=== PATIENT | male | born 1935 | race Caucasian/White ===

== ENCOUNTER 2017-04-01 11:58 | Inpatient (IN) | payer MEDICARE, BC ==
[2017-04-01 12:17] LABS: #Eosinphils 0.2 thou/uL (0.0-0.7); #Lymphocytes 1.6 thou/uL (1.20-3.40); #Monocytes 0.7 thou/uL (0.11-0.59); #Neutrophils 5.1 thou/uL (1.40-6.50); %Basophils 0.2 % (0.0-1.0); %Eosinophils 2.2 % (0.0-10.0); %Lymphocytes 21.2 % (21.0-51.0); %Monocytes 9.5 % (0.0-10.0); %Neutrophils 66.9 % (42.0-75.0); Hemoglobin 12.8 g/dL (14.0-18.0); Mean Corpuscular HGB CONC 33.2 g/dL (32.0-36.0); Mean Corpuscular Volume 96.2 fl (80.0-94.0); Mean Platelet Volume 7.1 fL (7.4-10.4); Platelet Count 187 thou/uL (130-400); White Blood Cell (WBC) Count 7.7 thou/uL (4.8-10.8)
[2017-04-01 12:34] LABS: PTT 25.2 SEC (22.9-36.1); Prothrombin Time 13.7 SEC (12.0-14.7)
--- NOTE | 2017-04-01 12:34 | RAD ---
CHEST ONE VIEW: History: Emergency exam. Comparison: Chest one view, 07-16-15. FINDINGS: The lungs are clear. No pneumothorax or effusion. Cardiac silhouette and mediastinal contours appear within normal limits. A catheter projects in the left hemithorax. IMPRESSION: No acute intrathoracic abnormality. POS: [facility]
[2017-04-01 12:39] LABS: ALT (SGPT) 16 U/L (8-55); AST (SGOT) 15 U/L (5-34); Albumin 3.3 g/dL (3.4-4.8); Alkaline Phosphatase 94 U/L (40-150); Anion Gap 13 mmol/L (10-20); BUN (Urea Nitrogen) 29 mg/dL (8.4-25.7); Bilirubin, Total 0.4 mg/dL (0.2-1.2); Calc. Creatinine Clearance 0 mL/min (70-130); Calcium 9.5 mg/dL (7.8-10.44); Carbon Dioxide 24 mmol/L (23-31); Chloride 108 mmol/L (98-107); Estimated GFR-MDRD 32; Globulin 2.6 g/dL (2.4-3.5); Glucose 170 mg/dL (83-110); Potassium 3.9 mmol/L (3.5-5.1); Protein, Total 5.9 g/dL (5.8-8.1); Sodium 141 mmol/L (136-145)
[2017-04-01 12:44] LABS: CKMB 3.4 ng/mL (0-6.6); Troponin I 0.043 ng/mL (< 0.028)
--- NOTE | 2017-04-01 15:12 | HP ---
PRIMARY CARE PHYSICIAN: Katie Hewitt M.D. REASON FOR ADMISSION: Symptomatic bradycardia. HISTORY OF PRESENT ILLNESS: An 82-year-old male with history of paroxysmal atrial fibrillation, hype rtension, diabetes type 2, and benign enlargement of prostate, who presented to the emergency room by paramedics for evaluation of syncope. Patient was at home, he had breakfast earlier today. He was seated in chair and whenever he was tryi ng to get out of chair, he was feeling dizzy and about to pass out. His was there and prevented him to fall, but patient was completely groggy and weak. The patient's tried to check vitals, but she was not able to get these blood pressure or pulse rate and that is why she called paramedics. As per paramedics, when they arrived to his home, his pulse was running very low. ER physician told me that his heart rate was in 20-30s and his blood pressure was also very low. Paramedics did cutane ous pacing and subsequently he was brought to our emergency room. When he presented to our emergency room, his blood pressure was normal. His pulse was running in 40s-50s. The patient was still feeli ng weak and lethargic. Paramedics check blood pressure was 74/46 and pulse was 34. As per report, p mateo's lowest blood pressure at home was 64/42. Paramedics gave him 100 microgram of fentanyl and 4 mg of Zofran and 400 mL of NS. As per paramedics, the patient was awake and responding, but he was very lethargic. Paramedics did not give him atropine during transit. As per paramedics, the patien t's heart rate and blood pressure improved after cutaneous pacing. Patient has a history of atrial fibrillation and he had ablation done in the past. The patient was n ot taking any beta sabino therapy, it was stopped about a year ago by Dr. Jarrell when pulse was drop ping. Patient is following Dr. Jarrell and he saw him last in January or February. At that time, ari mayer was given 3 days monitor and that was completely unremarkable. At this point, we are admitting this patient in the hospital for symptomatic bradycardia. 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 PAST SURGICAL HISTORY: Tonsillectomy as a child, prostate biopsy, hemorrhoidectomy, bilateral catara ct surgery, herniorrhaphy, endovascular aortic aneurysm repair, ablation for atrial flutter, lipoma r emoval. PAST PSYCHIATRIC HISTORY: Reviewed and negative. ALLERGIES: The patient is allergic to PENICILLIN. SOCIAL HISTORY: Patient is and lives at home with his . He started smoking by age of 23 and stopped smoking in 1971. He denies any alcohol abuse. He denies any other illicit drug abuse. FAMILY HISTORY: Positive for diabetes mellitus among several family members. REVIEW OF SYSTEMS: The following complete review of systems was negative, unless otherwise mentioned in the HPI or below: Constitutional: Weight loss or gain, ability to conduct usual activities. Skin: Rash, itching. Eyes: Double vision, pain. ENT/Mouth: Nose bleeding, neck stiffness, pain, tenderness. Cardiovascular: Palpitations, dyspnea on exertion, orthopnea. Respiratory: Shortness of breath, wheezing, cough, hemoptysis, fever or night sweats. Gastrointestinal: Poor appetite, abdominal pain, heartburn, nausea, vomiting, constipation, or diarr hea. Genitourinary: Urgency, frequency, dysuria, nocturia. Musculoskeletal: Pain, swelling. Neurologic/Psychiatric: Anxiety, depression. Allergy/Immunologic: Skin rash, bleeding tendency. Please see my HPI for pertinent positive and negative. All other review of systems reviewed and nega tive except that mentioned in the HPI. EMERGENCY ROOM COURSE: Reviewed. Paramedics gave him 500 mcg of fentanyl, 4 mg of Zofran and an 400 mL of NS. CURRENT HOME MEDICATIONS: Levothyroxine 25 mcg p.o. daily, clonidine 0.1 mg p.o. daily, glipizide 5 mg p.o. daily, losartan 50 mg p.o. daily, pravastatin 20 mg p.o. at bedtime, Flomax 0.4 mg p.o. daily , Avodart 0.5 mg p.o. daily, aspirin 81 mg p.o. daily, calcium with vitamin D 1 tablet p.o. daily. PHYSICAL EXAMINATION: VITAL SIGNS: On arrival, blood pressure 121/71, pulse 47, respiratory rate 20, saturation 96% on 3 l iter oxygen, weight 80.3 kilograms, and temperature 98.6. GENERAL: Patient is currently alert, awake, no obvious acute distress. Appears weak. HEAD: Normocephalic, atraumatic. EYES: Pupils round, reactive to light. Extraocular muscle intact. ENT: Oropharynx within normal limits. Moist mucous membranes. No oral lesions. No pharyngeal eryt lance, no exudates. NECK: Supple, no JVD, no thyromegaly, no carotid bruit, no jugular venous distention. LUNGS: Clear to auscultation without any rhonchi or rales. CARDIAC: S1 and S2 regular. No murmur, no gallop, no rub. ABDOMEN: Soft, bowel sounds present, nontender, nondistended. No organomegaly, no mass, no suprapub ic tenderness. BACK: Examination unremarkable, no CVA tenderness. EXTREMITIES: Upper extremity passive movements of all joints are normal. Lower extremities: No iain ma. Good peripheral pulsation. SKIN: No skin rash. HEMATOLOGICAL SYSTEM: No lymphadenopathy. PSYCHIATRIC: Normal affect. NEUROLOGIC: Nonfocal examination. The patient moves all 4 limbs. Plantar bilateral flexor. PSYCHIATRIC: Normal affect. IMAGING DATA AND SIGNIFICANT LABORATORY DATA: 1. EKG showing sinus bradycardia without ischemic changes. 2. CBC: WBC 7.7, hemoglobin 12.8, platelet 187, INR 1.0. 3. BMP: Sodium 141, potassium 3.9, chloride 108, carbon dioxide 24, anion gap 13, BUN 29, creatinin e 2.01, glucose 170, calcium 9.5, magnesium 2.0. 4. LFT: AST 15, ALT 16, alkaline phosphatase 94, albumin 3.3, CK-MB 3.4, troponin I 0.043, BNP 199. 6. ASSESSMENT AND PLAN/IMPRESSION: 1. Syncope, most likely related with acute hypotension and bradycardia. We need to rule out bradyar rhythmia. Another differential diagnosis was vasovagal syncope given hypotension and bradycardia, bu t cannot be entirely excluded cardiac etiology. We will obtain echocardiography. We will monitor on telemetry floor. We will do serial cardiac enzymes. We will consult Cardiology for possible pacema ker evaluation. We will hold try to get strips, which was obtained by paramedics if possible. 2. Bradycardia and hypotension. We will monitor on telemetry floor. As mentioned in problem #1, we are suspecting cardiac etiology for his syncopal episode and we will closely monitor on telemetry fl oor. We will also rule out orthostatic hypotension. 3. Elevated troponin likely due to demand ischemia. We will do serial cardiac enzymes to rule out a cute coronary syndrome. We will continue with aspirin 81 mg p.o. daily. We will check lipid profile for risk stratification and we will also check TSH. 4. Elevated BNP. We will obtain echocardiography to assess ejection fraction and other structural a bnormality. 5. Chronic kidney disease stage 3. We will monitor renal function. We will avoid nephrotoxic agent . 6. Benign enlargement of prostate. After verification of Flomax and Avodart, we will continue while in hospital. 7. Diabetes type 2. After verification of his home dose of medications, we will resume those medica tions and we will continue with insulin as per sliding scale per protocol. Diabetic diet will be giv en. 8. Dyslipidemia. Check lipid profile and continue pravastatin as per home dosage. 9. Hypothyroidism. Check TSH and continue Synthroid 25 mcg p.o. daily. 10. Deep venous thrombosis prophylaxis not needed because we are expecting discharge in 24 hours. 11. Gastrointestinal prophylaxis, Protonix 40 mg p.o. daily. CODE STATUS: The patient is FULL CODE. The patient's is surrogate decision maker. Disposition plan based on clinical course. We are expecting patient's stay in hospital for 24 hours. Plan of care discussed with the patient and at bedside in the emergency room.
[2017-04-01] MEDS ORDERED: hydrALAZINE 20 MG/ML VIAL ONE (16:07)
[2017-04-01] MEDS ORDERED: Chloraseptic Spray 180 ml Bottle PO PRN (16:57)
[2017-04-01] MEDS ORDERED: Eucerin (Mineral Oil/Petrolatum,White) 30 gm Jar TOP PRN (16:57)
[2017-04-01] MEDS ORDERED: Dextrose 50% Abboject 50 ML SYRINGE SLOW IVP PRN (16:57)
[2017-04-01] MEDS ORDERED: HumaLOG 300 UNITS/3 ML VIAL SC PRN ×2 (16:57)
[2017-04-01] MEDS ORDERED: Diabetic Tussin 200 MG/10 ML UDCUP PO PRN (16:57)
[2017-04-01] MEDS ORDERED: Ondansetron ODT 4 MG TAB PO PRN (16:57)
[2017-04-01] MEDS ORDERED: Acetaminophen 325 MG TAB PO PRN (16:57)
[2017-04-01] MEDS ORDERED: Loperamide HCl 2 MG CAP PO PRN (16:57)
[2017-04-01] MEDS ORDERED: Dextrose 5% in Water 1,000 ML IV PRN (16:57)
[2017-04-01] MEDS ORDERED: Senokot 8.6 MG TAB PO PRN (16:57)
[2017-04-01] MEDS ORDERED: Ondansetron HCl/PF 4 MG/2 ML Vial IVP PRN (16:57)
[2017-04-01] MEDS ORDERED: HYDROcodone/Acetaminophen 5/325 mg Tablet PO PRN (16:57)
[2017-04-01] MEDS ORDERED: Milk Of Magnesia 30 ML UDCUP PO PRN (16:57)
[2017-04-01] MEDS ORDERED: Nitroglycerin 0.4 MG TAB (25 Tab Bottle) SL PRN (16:57)
[2017-04-01] MEDS ORDERED: hydrALAZINE 20 MG/ML VIAL SLOW IVP PRN (16:57)
[2017-04-01] MEDS ORDERED: Zolpidem Tartrate 5 MG TAB PO PRN (16:57)
[2017-04-01] MEDS ORDERED: Artificial Tear Sol 15 ML BOT EA EYE PRN (16:57)
[2017-04-01] MEDS ORDERED: Mag-Al 1200 mg/1200 mg/30 ML UDCUP PO PRN (16:57)
[2017-04-01] MEDS ORDERED: Sodium Chloride 0.65% Nasal 44 ML BOT EA NARE PRN (16:57)
[2017-04-01 17:24] VITALS: BMI 25.8
[2017-04-02 06:19] LABS: #Eosinphils 0.1 thou/uL (0.0-0.7); #Lymphocytes 1.1 thou/uL (1.20-3.40); #Monocytes 0.7 thou/uL (0.11-0.59); #Neutrophils 6.5 thou/uL (1.40-6.50); %Basophils 0.5 % (0.0-1.0); %Eosinophils 1.3 % (0.0-10.0); %Lymphocytes 13.1 % (21.0-51.0); %Monocytes 8.6 % (0.0-10.0); %Neutrophils 76.6 % (42.0-75.0); Hemoglobin 13.4 g/dL (14.0-18.0); Mean Corpuscular HGB CONC 32.3 g/dL (32.0-36.0); Mean Corpuscular Hemoglobin 31.3 pg (27.0-31.0); Mean Corpuscular Volume 96.8 fl (80.0-94.0); Mean Platelet Volume 7.1 fL (7.4-10.4); Platelet Count 187 thou/uL (130-400); RBC Distribution Width 13.2 % (11.5-14.5); White Blood Cell (WBC) Count 8.5 thou/uL (4.8-10.8)
[2017-04-02 06:36] LABS: Anion Gap 14 mmol/L (10-20); BUN (Urea Nitrogen) 25 mg/dL (8.4-25.7); Calc. Creatinine Clearance 40 mL/min (70-130); Carbon Dioxide 24 mmol/L (23-31); Cardiac Risk 2.8 (Less than 4.5); Chloride 108 mmol/L (98-107); Cholesterol 136 mg/dl (< 200 Desired); Estimated GFR-MDRD 38; Glucose 118 mg/dL (83-110); HDL Cholesterol 48 mg/dL (>60 Neg Risk); LDL Cholesterol, Calculated 69 mg/dL; Potassium 3.9 mmol/L (3.5-5.1); Sodium 142 mmol/L (136-145); Triglycerides 97 mg/dL (Less than 150)
[2017-04-02] MEDS ORDERED: Levothyroxine Sodium 25 MCG TAB PO SCH (07:00)
[2017-04-02] MEDS: Cyanocobalamin (Vitamin B-12) 1,000 MCG TAB PO SCH ×2 (08:38→08:43)
[2017-04-02] MEDS: Calcitriol 0.25 MCG CAP PO SCH (08:38)
[2017-04-02] MEDS: Famotidine 20 MG TAB PO SCH (08:38)
[2017-04-02] MEDS: Dutasteride 0.5 MG CAP PO SCH (08:38)
[2017-04-02] MEDS: Losartan 25 MG TAB PO SCH (08:39)
[2017-04-02] MEDS: Finasteride 5 MG TAB PO SCH (08:40)
[2017-04-02] MEDS: Tamsulosin HCl 0.4 MG CAP PO SCH ×2 (08:41→22:01)
--- NOTE | 2017-04-02 10:17 | PDOC.PN ---
- Subjective Encounter Start Date: 04/02/17 Encounter Start Time: 07:30 -: old records requested/rev - Objective Resuscitation Status: Resuscitation Status FULL:Full Resuscitation MAR Reviewed: Yes Vital Signs & Weight: Vital Signs (12 hours) Temp Pulse Resp BP BP BP BP 04/02/17 10:05 166/84 H 163/87 H 04/02/17 08:00 98.0 F 66 20 197/96 H 04/02/17 04:07 51 L 18 179/91 H 04/01/17 23:35 97.8 F 52 L 16 167/84 H BP Pulse Ox 04/02/17 10:05 176/82 H 04/02/17 08:00 92 L 04/02/17 04:07 92 L 04/01/17 23:35 93 L Weight Weight 185 lb 1.6 oz Result Diagrams: 04/02/17 05:36 04/02/17 05:36 Additional Labs: Accuchecks 04/01/17 21:01 POC Glucose 227 H Radiology Reviewed by me: Yes EKG Reviewed by me: Yes (bradycardia) Phys Exam - Physical Examination Constitutional: NAD HEENT: PERRLA, moist MMs, sclera anicteric Neck: no JVD, supple Respiratory: no wheezing, no rales, no rhonchi Cardiovascular: RRR, no significant murmur, no rub Gastrointestinal: soft, non-tender, no distention, positive bowel sounds Musculoskeletal: no edema, pulses present Neurological: non-focal, normal sensation, moves all 4 limbs Lymphatic: no nodes Psychiatric: normal affect, A&O x 3 Skin: no rash, normal turgor Dx/Plan (1) Elevated brain natriuretic peptide (BNP) level Code(s): R79.89 - OTHER SPECIFIED ABNORMAL FINDINGS OF BLOOD CHEMISTRY Status : Acute (2) Hypotension Status: Resolved (3) Symptomatic bradycardia Code(s): R00.1 - BRADYCARDIA, UNSPECIFIED Status: Acute (4) Syncope Code(s): R55 - SYNCOPE AND COLLAPSE Status: Acute (5) BPH (benign prostatic hyperplasia) Code(s): N40.0 - BENIGN PROSTATIC HYPERPLASIA WITHOUT LOWER URINRY TRACT SYMP Status: Chronic (6) CKD (chronic kidney disease) stage 3, GFR 30-59 ml/min Code(s): N18.3 - CHRONIC KIDNEY DISEASE, STAGE 3 (MODERATE) Status: Chronic (7) Diabetes type 2, controlled Code(s): E11.9 - TYPE 2 DIABETES MELLITUS WITHOUT COMPLICATIONS Status: Chronic (8) Hyperlipidemia Code(s): E78.5 - HYPERLIPIDEMIA, UNSPECIFIED Status: Chronic (9) Hypertension Code(s): I10 - ESSENTIAL (PRIMARY) HYPERTENSION Status: Chronic - Plan cont current plan of care * as per cardiology, pt will need pacemaker * procedure will be done tomorrow * after procedure will need to observe overnight * will need to change to inpt status * medication reviewed as below * symptomatic treatment Review of Systems - Review of Systems Eyes: negative: Pain, Vision Change, Conjunctivae Inflammation, Eyelid Inflammation, Redness, Other ENT: negative: Ear Pain, Ear Discharge, Nose Pain, Nose Discharge, Nose Congestion, Mouth Pain, Mouth Swelling, Throat Pain, Throat Swelling, Other Respiratory: negative: Cough, Dry, Shortness of Breath, Hemoptysis, SOB with Excertion, Pleuritic Pain, Sputum, Wheezing Cardiovascular: negative: chest pain, palpitations, orthopnea, paroxysmal nocturnal dyspnea, edema, light headedness, other Gastrointestinal: negative: Nausea, Vomiting, Abdominal Pain, Diarrhea, Constipation, Melena, Hematochezia, Other Genitourinary: negative: Dysuria, Frequency, Incontinence, Hematuria, Retention , Other Musculoskeletal: negative: Neck Pain, Shoulder Pain, Arm Pain, Back Pain, Hand Pain, Leg Pain, Foot Pain, Other Skin: negative: Rash, Lesions, Brannon, Bruising, Other - Medications/Allergies Allergies/Adverse Reactions: Allergies Allergy/AdvReac Type Severity Reaction Status Date / Time loperamide [From Imodium A-D] Allergy Verified 04/01/17 17:03 Penicillins Allergy Hives Verified 07/11/15 15:36 Medications: Current Medications Acetaminophen (Tylenol) 650 mg PO Q4H PRN PRN Reason: Headache/Fever or Pain Hydrocodone Bitart/Acetaminophen ([place] 5/325) 1 tab PO Q4H PRN PRN Reason: Moderate Pain (4-6) Al Hydroxide/Mg Hydroxide (Maalox) 30 ml PO Q6H PRN PRN Reason: Heartburn or Indigestion Artificial Tears (Tears Renewed 15ml Bottle) 0 drop EA EYE PRN PRN PRN Reason: Dry Eyes Calcitriol (Rocaltrol) 0.25 mcg PO DAILY [facility] Last Admin: 04/02/17 08:38 Dose: 0.25 mcg Cyanocobalamin (Vitamin B-12) 5,000 mcg PO DAILY [facility] Last Admin: 04/02/17 08:43 Dose: Not Given Dextrose/Water (Dextrose 50%) 25 gm SLOW IVP PRN PRN PRN Reason: Hypoglycemia Doxazosin Mesylate (Cardura) 2 mg PO HS [facility] Dutasteride (Avodart) 0.5 mg PO DAILY [facility] Last Admin: 04/02/17 08:38 Dose: 0.5 mg Famotidine (Pepcid) 20 mg PO DAILY [facility] Last Admin: 04/02/17 08:38 Dose: 20 mg Finasteride (Proscar) 5 mg PO DAILY [facility] Last Admin: 04/02/17 08:40 Dose: 5 mg Glucagon (Glucagon) 1 mg IM PRN PRN PRN Reason: Hypoglycemia Guaifenesin (Robitussin Sf) 200 mg PO Q4H PRN PRN Reason: Cough Hydralazine HCl (Apresoline) 10 mg SLOW IVP Q4H PRN PRN Reason: Systolic BP > 180 Dextrose/Water (D5w) 1,000 mls @ 0 mls/hr IV .Q0M PRN; As Directed PRN Reason: Hypoglycemia Insulin Human Lispro (Humalog) 0 units SC .MODERATE SLIDING SC PRN PRN Reason: Moderate Correctional Scale Insulin Human Lispro (Humalog) 0 units SC .BEDTIME SLIDING SC PRN PRN Reason: Bedtime Correctional Scale Levothyroxine Sodium (Synthroid) 25 mcg PO 0600 [facility] Loperamide HCl (Imodium) 2 mg PO PRN PRN PRN Reason: Diarrhea/Loose Stools Losartan Potassium (Cozaar) 50 mg PO DAILY [facility] Last Admin: 04/02/17 08:39 Dose: 50 mg Magnesium Hydroxide (Milk Of Magnesium) 30 ml PO DAILYPRN PRN PRN Reason: Constipation Mineral Oil/White Petrolatum (Eucerin Cream) 0 gm TOP BIDPRN PRN PRN Reason: Dry Skin Nitroglycerin (Nitrostat) 0.4 mg SL Q5MIN PRN PRN Reason: Chest Pain Ondansetron HCl (Zofran Odt) 4 mg PO Q6H PRN PRN Reason: Nausea/Vomiting Ondansetron HCl (Zofran) 4 mg IVP Q6H PRN PRN Reason: Nausea/Vomiting Phenol (Chloraseptic [place] 180 Ml Bot) 0 ml PO PRN PRN PRN Reason: Sore Throat Senna (Senokot) 2 tab PO HSPRN PRN PRN Reason: Constipation Simvastatin (Zocor) 10 mg PO HS [facility] Sodium Chloride ([place] Nasal [place] 0.65%) 0 ml EA NARE QIDPRN PRN PRN Reason: Nasal Congestion Tamsulosin HCl (Flomax) 0.4 mg PO BID [facility] Last Admin: 04/02/17 08:41 Dose: 0.4 mg Zolpidem Tartrate (Ambien) 5 mg PO HSPRN PRN PRN Reason: Insomnia
--- NOTE | 2017-04-02 11:58 | CON ---
DATE OF CONSULTATION: 04/02/2017 REASON FOR CONSULTATION: Symptomatic bradycardia. HISTORY OF PRESENT ILLNESS: Mr. Bailey is an 82-year-old man. The patient had an episode yesterday of near syncope. It was associated with low heart rate. The patient does have a history of orthostatic hypotension, also history of symptomatic bradycardia i n the past. Mr. Bailey was at home yesterday, he was sitting in a chair and feeling dizzy and about to pass out. He got very groggy and weak. His was unable to get his blood pressure, she called the [facility], he has had a heart rate as low as in the 20s and 30s there. He did receive some transcutaneous p acing. He also had hypertension. Blood pressure is low as 64/42. The patient was given normal sali ne. Ultimately, the heart rate came back up. Patient is asymptomatic now. The patient does have a history of orthostatic hypotension as well. PAST MEDICAL HISTORY: 1. Hypertension 2. History of atrial flutter. 3. History of abdominal aortic aneurysm treated with percutaneous therapy. 4. History of chronic kidney disease. PAST SURGICAL HISTORY: 1. Tonsillectomy. 2. Hemorrhoidectomy. 3. Cataract. 4. Endovascular aortic aneurysm repair. 5. Ablation for atrial flutter. ALLERGIES: PENICILLIN. SOCIAL HISTORY: He is . Quit smoking in 1971. FAMILY HISTORY: Positive for diabetes. REVIEW OF SYSTEMS: Constitutional: No significant weight gain or loss. Vision: No changes. Heari ng: No changes. Pulmonary: No cough or wheezing. Gastrointestinal: No nausea, vomiting, diarrhea . Skin: No rashes. Neurologic: No unilateral weakness or numbness. Psychiatric: No unusual depr ession or anxiety. Hematologic: No unusual bruising. Genitourinary: No burning with urination. M usculoskeletal: No unusual joint pain. MEDICATIONS: 1. Levothyroxine. 2. Clonidine 0.1 mg a day. 3. Losartan 50 mg a day. 4. Flomax. 5. Aspirin. 6. Calcium. PHYSICAL EXAMINATION: GENERAL: A pleasant gentleman in no distress. VITAL SIGNS: Blood pressure most recently was high 197/96, pulse 66 regular, but then later was 120, sinus rhythm. HEENT: Sclerae nonicteric. Mouth mucous membranes moist. NECK: Supple, no lymphadenopathy. LUNGS: Clear, no wheezing, rales or rhonchi. CARDIAC: Normal S1, normal S2. There is no murmur, rub or gallop. ABDOMEN: Soft, nontender, no hepatosplenomegaly. EXTREMITIES: Warm, dry, no clubbing, cyanosis. There is no edema. SKIN: As mentioned, warm and dry. LABORATORY AND X-RAY FINDINGS: EKG sinus rhythm with a right bundle branch block that is an old find ing. Echocardiogram, the ejection fraction 55%-60% in 05/25/2015. ASSESSMENT: 1. Near syncopal episode. 2. Symptomatic bradycardia, heart rate 48, but there was also a heart rate of 30 under short rhythm strips, look like probably may have been atrial fibrillation at that point. ASSESSMENT 1. Symptomatic bradycardia. 2. History of orthostatic hypotension. 3. Previous abdominal aortic aneurysm repair, treated endovascular. 4. Tachybrady with intermittent sinus tachycardia. 5. Hypertension, labile. PLAN: Recommend he undergo pacemaker insertion. Discussed risk of bleeding, infection, air around t he lung and lead dislodgement. Patient understands and wishes to proceed. We will arrange for this. We will discuss with Dr. Astudillo.
--- NOTE | 2017-04-02 17:50 | PDOC.CTH ---
Cardiology Progress Note - Subjective Pt. seen for discussion of pacemaker insertion due to SSS, symptomatic bradycardia. I have expplained the procedure and risks: bleeding,infection, pneumo/hemothorax,tamponade. He agrees to proceed. - Objective Vital Signs Temp Pulse Resp BP Pulse Ox 04/02/17 16:06 98.7 F 82 20 160/90 H 93 L 04/02/17 12:46 98.1 F 59 L 20 186/90 H 92 L 04/01/17 04/02/17 04/03/17 06:59 06:59 06:59 Intake Total 350 Output Total 115 Balance 235 - Labs Result Diagrams: 04/02/17 05:36 04/02/17 05:36 Troponin/CKMB CK-MB (CK-2) 3.4 ng/mL (0-6.6) 04/01/17 12:03 Troponin I 0.043 ng/mL (< 0.028) H 04/01/17 12:03
[2017-04-02] MEDS ORDERED: Simvastatin 5 MG TAB PO SCH (21:00)
[2017-04-02] MEDS ORDERED: Doxazosin 2 MG TAB PO SCH (21:00)
[2017-04-03] MEDS ORDERED: Levothyroxine Sodium 25 MCG TAB PO SCH (06:00)
[2017-04-03] MEDS ORDERED: Clindamycin/D5W 900 MG in Premix Bag 1 BAG IVPB SCH (06:00)
[2017-04-03] MEDS ORDERED: Vancomycin HCl 500 MG VIAL ONE (07:14)
[2017-04-03] MEDS ORDERED: Gentamicin 80 MG/2 ML VIAL ONE (07:14)
[2017-04-03] MEDS ORDERED: Clindamycin/D5W 600 mg/50 ml Premix Bag ONE (07:17)
[2017-04-03] MEDS ORDERED: Levofloxacin 500 mg/D5W 100 ml Premix Bag ONE (07:18)
[2017-04-03] MEDS ORDERED: Midazolam HCl 2 mg/2 ml Vial ONE ×2 (07:50→07:58)
[2017-04-03] MEDS ORDERED: Lidocaine 1% (PF) 30 ML VIAL ONE (07:57)
[2017-04-03] MEDS ORDERED: Acetaminophen/Codeine 30-300mg Tablet PO PRN (08:53)
[2017-04-03] MEDS: Dutasteride 0.5 MG CAP PO SCH (09:02)
[2017-04-03] MEDS: Calcitriol 0.25 MCG CAP PO SCH (09:02)
[2017-04-03] MEDS: Finasteride 5 MG TAB PO SCH (09:02)
[2017-04-03] MEDS: Tamsulosin HCl 0.4 MG CAP PO SCH (09:02)
[2017-04-03] MEDS: Famotidine 20 MG TAB PO SCH (09:02)
[2017-04-03] MEDS: Cyanocobalamin (Vitamin B-12) 1,000 MCG TAB PO SCH (09:03)
[2017-04-03] MEDS: Metoprolol Tartrate 50 MG TAB PO SCH ×2 (09:39→18:17)
[2017-04-03] MEDS: Losartan 25 MG TAB PO SCH (09:39)
--- NOTE | 2017-04-03 11:32 | RAD ---
CHEST 1 VIEW: Date: 04/03/17 HISTORY: Cardiac pacer placement. COMPARISON: 04/01/17. FINDINGS: Cardiac silhouette is magnified by projection. Pulmonary vasculature is unremarkable. Mediastinum is midline. Dual lead left subclavian cardiac electronic device is now in place with leads overlying the right atrium and right ventricle. No pneumothorax is apparent on this portable upright view. cardiac monitor technician leads overlie the chest. IMPRESSION: Left subclavian cardiac pacer is in good radiographic position. POS: [facility]
--- NOTE | 2017-04-03 13:34 | CCL ---
CARDIOLOGY PROCEDURE NOTE: Date: 04/03/17 PROCEDURE: Pacemaker insertion. 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 He was advised to undergo pacemaker insertion. PROCEDURE IN DETAIL: The patient was taken to the cardiac clinical laboratory manager, prepped, and draped in sterile fashion. Using a left s ubclavian approach, the pacemaker was inserted without any difficulties or complications. The full d ictated note can be found in the chart. He was implanted with a MRI compatible device from [employer], an Advisa dual chamber pacemaker with two screw-in leads, one in the atrium and one in the ventricle . The upper rate was set at 120 and the lower rate was set at 60. There were no difficulties or compl ications encountered. The patient tolerated the procedure well. Prior to the procedure, he was given a total of 4 mg of Versed without difficulties or complications. He was monitored throughout the proc edure.
[2017-04-03 16:03] VITALS: BP 136/78; TEMP 97.2
--- NOTE | 2017-04-04 09:45 | DIS ---
DATE OF ADMISSION: 04/01/2017 DATE OF DISCHARGE: 04/03/2017 ADMITTING DIAGNOSIS: Symptomatic bradycardia. DISCHARGE DIAGNOSIS: Symptomatic bradycardia, status post pacemaker placement. SECONDARY DIAGNOSES: 1. Hypertension. 2. Type 2 diabetes mellitus. 3. History of cerebrovascular accident. 4. History of abdominal aortic aneurysm repair. 5. History of seeking chronic kidney disease stage 3. 6. History of hypothyroidism. 7. History of atrial flutter. CONSULTANTS INVOLVED IN THE CARE: Dr. Wesly Patiño and Dr. Astudillo. PROCEDURES DONE DURING THIS ADMISSION: pacemaker implantation and 2D echo with an EF of 60%-65%. HISTORY OF PRESENT ILLNESS AND HOSPITAL COURSE: In brief, this is an 82-year-old white male with a k nown history of atrial flutter and has known patient to Dr. Jarrell. He presented to the hospital bec ause of the syncope that he experienced at home and was associated with low heart rate. The patient has a history of orthostatic hypotension and also history of symptomatic bradycardia in the past. Mars mayer actually felt very dizzy while he was sitting in a chair and was about to pass out and he got v josue groggy and weak and his was unable to get his blood pressure, so she called the paramedics a s the heart rate was low in 20s to 30s and he received transcutaneous pacing and his blood pressure w as noted at that time was 64/42 and the patient was started on normal saline bolus and heart rate did come back up with the pacing. The patient was admitted and was seen by Dr. Jarrell and Dr. Astudillo foll figueroa and that this was followed by pacemaker implantation with pacemaker type of SSS which would hav e a minimum rate and also a maximum rate. The patient was explained about the complications of the p rocedure and the patient had mild hematoma following the surgery which got progressively regressed fo llowing placement of cold compresses. Patient was monitored till late in the evening and was dischar [facility] home after evaluated by Cardiology. Patient was stable at the time of discharge. PHYSICAL EXAMINATION: On date of discharge: VITAL SIGNS: Blood pressure 136/78, heart rate is 76, respiratory rate 16, saturation 93% on room ai r. GENERAL: The patient is moderately built and moderately nice. He does not appear to be in acute dis tress at this time. CARDIOVASCULAR: S1, S2 normal. No murmurs, rubs or gallops. LUNGS: Bilateral air entry was equal. No wheezing, no crackles. ABDOMEN: Soft, nontender, no guarding, no rebound tenderness. Bowel sounds normal. MUSCULOSKELETAL: No calf tenderness. No pedal edema. No joint tenderness. No joint swelling. DISCHARGE MEDICATIONS: 1. Clonidine. 2. Aspirin 81 mg. 3. Clonidine 0.1 mg p.o. b.i.d. 4. Lutein 25 mg red capsule daily. 5. Calcitriol 0.25 mcg capsule. 6. Cyanocobalamin 5000 mcg capsule daily. 7. Doxazosin 2 mg daily. 8. Dutasteride. 9. Finasteride 5 mg daily. 10. Levothyroxine 25 mcg p.o. daily. 11. Pravastatin 40 mg p.o. daily. 12. Tamsulosin 0.4 mg capsule 24 hours. DISCHARGE INSTRUCTIONS: Continue activity as tolerated. The patient was advised about the care for his pacemaker and all the instructions were given by Cardiology team. The patient was advised to follow up with Cardiology in 1-2 weeks. I advised the patient to return to the ER if the patient notices any worsening fever or any worsening pain in the left side of the chest or any worsening hematoma. I spent 35 minutes with this patient on the day of discharge.
--- NOTE | 2017-04-26 16:41 | EKG ---
Test Reason : POST PACEMAKER Blood Pressure : / mmHG Vent. Rate : 098 BPM Atrial Rate : 098 BPM P-R Int : 174 ms QRS Dur : 132 ms QT Int : 406 ms P-R-T Axes : 073 -35 047 degrees QTc Int : 518 ms Normal sinus rhythm Left axis deviation Right bundle branch block Inferior infarct , age undetermined Abnormal ECG Confirmed by DR. Dallin PIERCE ([id number]) on 04/26/2017 4:41:00 PM Referred By: KATLYN Confirmed By:DR. Dallin PIERCE
== END 2017-04-03 19:41 | disposition home or self-care (01) | DRG 243 ==
LOC: ERS 11:58 → 2SW 16:46 → OBSVTOIN 04-02 10:15
PROVIDERS: ADMIT Internal Medicine; ATTEND Internal Medicine
PROC: 0JH606Z Insertion of Pacemaker, Dual Chamber into Chest Subcutaneous Tissue and Fascia, Open Approach (ICD-10-PCS; principal; 2017-04-03)
PROC: 02H73JZ Insertion of Pacemaker Lead into Left Atrium, Percutaneous Approach (ICD-10-PCS; 2017-04-03)
PROC: 02HL3JZ Insertion of Pacemaker Lead into Left Ventricle, Percutaneous Approach (ICD-10-PCS; 2017-04-03)
PROC: 4A023N7 Measurement of Cardiac Sampling and Pressure, Left Heart, Percutaneous Approach (ICD-10-PCS; 2017-04-03)
PROC: B2111ZZ Fluoroscopy of Multiple Coronary Arteries using Low Osmolar Contrast (ICD-10-PCS; 2017-04-03)
DX: I49.5 Sick sinus syndrome (principal); I24.8 Other forms of acute ischemic heart disease; I95.9 Hypotension, unspecified; E11.9 Type 2 diabetes mellitus without complications; N18.3 Chronic kidney disease, stage 3 (moderate); I48.0 Paroxysmal atrial fibrillation; E03.9 Hypothyroidism, unspecified; N40.0 Benign prostatic hyperplasia without lower urinary tract symptoms; E78.5 Hyperlipidemia, unspecified; I12.9 Hypertensive chronic kidney disease with stage 1 through stage 4 chronic kidney disease, or unspecified chronic kidney disease; R79.89 Other specified abnormal findings of blood chemistry; Z86.73 Personal history of transient ischemic attack (TIA), and cerebral infarction without residual deficits; Z88.0 Allergy status to penicillin
CPT/HCPCS: 33249; 36415; 36416; 71045; 80048; 80053; 80061; 82553; 83735; 83880; 84443; 84484; 85025; 85610; 85730; 93005; 93010; 93306; 93798; 96374; 99153; A4216; C1785; C1898; J0360; J1580; J1956; J2001; J2250; J3370; J3490

== ENCOUNTER 2017-12-23 08:31 | Day surgery (SDC) | payer MEDICARE, BC ==
[2017-12-23 08:49] LABS: #Eosinphils 0.2 thou/uL (0.0-0.7); #Lymphocytes 1.3 thou/uL (1.20-3.40); #Monocytes 0.8 thou/uL (0.11-0.59); #Neutrophils 5.5 thou/uL (1.40-6.50); %Basophils 0.1 % (0.0-1.0); %Eosinophils 2.6 % (0.0-10.0); %Lymphocytes 16.2 % (21.0-51.0); %Monocytes 10.1 % (0.0-10.0); Hemoglobin 13.4 g/dL (14.0-18.0); Mean Corpuscular HGB CONC 31.5 g/dL (32.0-36.0); Mean Corpuscular Hemoglobin 30.2 pg (27.0-31.0); Mean Corpuscular Volume 95.7 fL (78.0-98.0); Mean Platelet Volume 7.2 fL (7.4-10.4); Platelet Count 204 thou/uL (130-400); RBC Distribution Width 13.4 % (11.5-14.5); Red Blood Cell (RBC) Count 4.43 mill/uL (4.70-6.10); White Blood Cell (WBC) Count 7.8 thou/uL (4.8-10.8)
[2017-12-23 08:57] LABS: Prothrombin Time 13.2 SEC (12.0-14.7)
[2017-12-23 09:43] VITALS: BP 148/100; TEMP 98
[2017-12-23 09:55] VITALS: BMI 25.4
--- NOTE | 2017-12-23 13:28 | RAD ---
TWO AP VIEWS OF THE CHEST: INDICATION: Status post lung biopsy. COMPARISON: CT-guided lung biopsy dated 12/23/17. FINDINGS: The inspiratory and expiratory AP views of the chest demonstrate no significant pneumothorax. A smal l amount of hemorrhage is suspected within the left upper lobe adjacent to the nodular biopsy site of the anterior segment of the left upper lobe. Mild cardiomegaly is stable. Dual-lead pacemaker is u nchanged. No acute osseous abnormality is evident. IMPRESSION: No significant pneumothorax demonstrated. POS: SHILPA
--- NOTE | 2017-12-23 14:12 | CT ---
CT GUIDED LEFT UPPER LOBE MASS BIOPSY: History: Lung mass. FINDINGS: After explaining the procedure and answering all questions, limited CT imaging of the left upper lobe was performed. Anterior approach was planned. Sterile technique, buffered local anesthesia, CT delfina nce, and a left anterior approach were used to carefully advance a 19 gauge trocar needle into the so lid component of the cavitary left upper lobe mass. Position was confirmed with CT. Two core biopsy s pecimens twenty gauge were obtained and eventually submitted to pathology for evaluation. Needle was removed. No evidence of pneumothorax. Patient tolerated the procedure well and was returned in the [facility] area in good condition for further monitoring. IMPRESSION: Technically successful CT guided biopsy left upper lobe lung base. Pathology is pending. POS: SHILPA
--- NOTE | 2017-12-23 14:15 | RAD ---
RADIOGRAPH CHEST 2 VIEWS: Date: 12/23/17 Time: 1212 hours HISTORY: Second set of chest radiograph images status post lung biopsy. COMPARISON: 12/23/17 at 1109 hours. TECHNIQUE: Two frontal upright views in inspiration and expiration. FINDINGS: There are no air space densities, pulmonary edema, pneumothorax, or cardiomegaly. The lateral costop hrenic angles are sharp. There is a left subclavian dual lead pacemaker. There is no interval change. IMPRESSION: 1. No acute cardiopulmonary findings. 2. No pneumothorax. 3. Left-sided pacemaker. flora [] POS: SHILPA
== END 2017-12-23 12:45 | disposition home or self-care (01) ==
LOC: CT 08:31
PROVIDERS: ATTEND Internal Medicine
PROC: 0B9G3ZX Drainage of Left Upper Lung Lobe, Percutaneous Approach, Diagnostic (ICD-10-PCS; principal; 2017-12-23)
DX: J84.10 Pulmonary fibrosis, unspecified (principal); R91.1 Solitary pulmonary nodule; J44.9 Chronic obstructive pulmonary disease, unspecified; Z79.01 Long term (current) use of anticoagulants; Z79.899 Other long term (current) drug therapy; Z88.0 Allergy status to penicillin; Z88.8 Allergy status to other drugs, medicaments and biological substances
CPT/HCPCS: 32405; 36415; 71045; 77012; 85025; 85610; 85730; 88305; 88313

== ENCOUNTER 2018-01-16 10:30 | Outpatient (CLI) | payer MEDICARE, BC ==
--- NOTE | 2018-01-16 13:03 | RAD ---
CHEST 2 VIEWS: Date: 01/16/18 HISTORY: Cough. COMPARISON: Chest radiograph dated 12/23/17. FINDINGS: Heart size is enlarged. No focal confluent air space consolidation, pneumothorax, or effusion. Mild t ortuosity of the aorta. Dual lead pacer. IMPRESSION: Mild cardiomegaly, otherwise no acute intrathoracic abnormality. POS: OFF
== END 2018-01-16 10:31 | disposition home or self-care (01) ==
LOC: BICRAD 10:30
PROVIDERS: ATTEND Internal Medicine
DX: R05 Cough (principal); I51.7 Cardiomegaly
CPT/HCPCS: 36415; 71046; 80053; 80061; 81001; 82043; 82306; 83036; 84439; 84443; 85025; 87077; 87086; 87186

== ENCOUNTER 2018-01-17 09:57 | Inpatient (IN) | payer MEDICARE, BC ==
[2018-01-17 10:58] LABS: #Eosinphils 0.1 thou/uL (0.0-0.7); #Lymphocytes 0.6 thou/uL (1.20-3.40); #Monocytes 0.5 thou/uL (0.11-0.59); #Neutrophils 5.8 thou/uL (1.40-6.50); %Basophils 0.5 % (0.0-1.0); %Eosinophils 1.5 % (0.0-10.0); %Lymphocytes 8.7 % (21.0-51.0); %Monocytes 6.4 % (0.0-10.0); %Neutrophils 82.8 % (42.0-75.0); Hemoglobin 13.1 g/dL (14.0-18.0); Mean Corpuscular HGB CONC 31.9 g/dL (32.0-36.0); Mean Corpuscular Hemoglobin 30.4 pg (27.0-31.0); Mean Corpuscular Volume 95.1 fL (78.0-98.0); Mean Platelet Volume 7.3 fL (7.4-10.4); Platelet Count 157 thou/uL (130-400); RBC Distribution Width 13.3 % (11.5-14.5); Red Blood Cell (RBC) Count 4.31 mill/uL (4.70-6.10)
[2018-01-17 11:20] LABS: ALT (SGPT) 16 U/L (8-55); AST (SGOT) 19 U/L (5-34); Albumin 3.3 g/dL (3.4-4.8); Alkaline Phosphatase 88 U/L (40-150); Anion Gap 12 mmol/L (10-20); BUN (Urea Nitrogen) 29 mg/dL (8.4-25.7); Bilirubin, Total 0.4 mg/dL (0.2-1.2); CK (CPK) 53 U/L (30-200); Calc. Creatinine Clearance 0 mL/min (70-130); Calcium 9.4 mg/dL (7.8-10.44); Carbon Dioxide 24 mmol/L (23-31); Chloride 109 mmol/L (98-107); Estimated GFR-MDRD 27; Globulin 2.7 g/dL (2.4-3.5); Glucose 222 mg/dL (83-110); Lipase 73 U/L (8-78); Potassium 4.2 mmol/L (3.5-5.1); Sodium 141 mmol/L (136-145)
[2018-01-17 11:25] LABS: CKMB 3.9 ng/mL (0-6.6); Troponin I 0.064 ng/mL (< 0.028)
--- NOTE | 2018-01-17 11:36 | RAD ---
SINGLE VIEW OF THE CHEST: Comparison: 04-03-17 History: Altered mental status. FINDINGS: Single view of the chest shows an enlarged cardiomediastinal silhouette. The pacemaker is unchanged i n position. There is no evidence of consolidation, mass, pleural effusion. IMPRESSION: No evidence of acute cardiopulmonary disease. POS: [facility]
[2018-01-17 12:30] LABS: Bilirubin Negative (Negative); Blood, Urine Small (Negative); Clarity CLOUDY (Clear); Glucose, Urine (Dipstick) Negative (Negative); Leukocyte Large (Negative); Nitrite Positive (Negative); Protein, Urine (Dipstick) 30 mg/dL (Neg-Trace); Specific Gravity, Urine 1.014 (1.002-1.036)
[2018-01-17 12:33] LABS: Bacteria/HPF 1+ HPF (None Seen); Pathc Cast-AUWi Flag 2.47 (0-2.49); RBC/HPF 0-3 HPF (0-3); Squamous Epithelial None Seen HPF (0-3)
[2018-01-17 12:34] LABS: Hyaline Casts/LPF 0-3 HYALINE CAST LPF (0-3 Hyaline)
[2018-01-17] MEDS ORDERED: Acetaminophen 325 MG TAB PO PRN (14:52)
[2018-01-17] MEDS ORDERED: Heparin 5,000 UNITS/ML VIAL SC SCH (15:00)
[2018-01-17 15:59] LABS: Troponin I 0.068 ng/mL (< 0.028)
[2018-01-17] MEDS ORDERED: cefTRIAXone\\ROCEPHIN 2 GM VIAL ONE (16:49)
[2018-01-17] MEDS ORDERED: hydrALAZINE 20 MG/ML VIAL SLOW IVP PRN (17:08)
[2018-01-17] MEDS ORDERED: HumaLOG 300 UNITS/3 ML VIAL SC PRN (17:18)
[2018-01-17] MEDS ORDERED: Dextrose 50% Abboject 50 ML SYRINGE SLOW IVP PRN (17:18)
[2018-01-17] MEDS ORDERED: Dextrose 5% in Water 1,000 ML IV PRN (17:18)
[2018-01-17 17:29] LABS: Troponin I 0.069 ng/mL (< 0.028)
[2018-01-17] MEDS ORDERED: Losartan 25 MG TAB PO SCH (17:30)
--- NOTE | 2018-01-17 17:54 | CT ---
CT BRAIN WITHOUT CONTRAST: Date: 01/17/18 HISTORY: Syncope. COMPARISON: CT brain from 2015. FINDINGS: Moderate deep white matter chronic microvascular ischemic changes. Moderate atrophy. 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 Moderate atrophy. No acute hemorrhage or large volume infarction. No midline shift or mass effect. Calvarium is intact. Paranasal sinuses and mastoids are clear. IMPRESSION: Chronic changes. No acute intracranial abnormality. POS: ARLIN
[2018-01-17 20:24] LABS: Troponin I 0.073 ng/mL (< 0.028)
[2018-01-17] MEDS: Doxazosin 2 MG TAB PO SCH (21:29)
[2018-01-17] MEDS: Simvastatin 5 MG TAB PO SCH (21:29)
[2018-01-17] MEDS: Donepezil HCl 10 MG TAB PO SCH (21:29)
[2018-01-17] MEDS: Metoprolol Tartrate 100 MG TAB PO SCH (21:29)
[2018-01-17] MEDS: Apixaban 2.5 MG TAB PO SCH (21:29)
--- NOTE | 2018-01-17 21:35 | HP ---
CHIEF COMPLAINT: Syncope. 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 The patient's who was at the bedside stated that for the past couple weeks, the patient has been feeling very tired and very sleepy, so she took him to the primary care doctor yesterday who did all the blood wor k and also chest x-ray, which was essentially negative. The patient's stated that this morning, he woke up, he ate breakfast, and then when had one bout of soft stools last night; and this morning , he went to sit on the commode to have another bowel movement and she found him slumped over. She c alled him by his name couple times; however, he did not respond. The patient's did take his blo od pressure. She told me his blood pressure was in the 90s/60s. There was no activities of shaking- like symptoms. She did not think it was a seizure. She took his blood pressure again the second jeanie e and summoned the EMS, and this time his blood pressure had improved. When the EMS got there, the p atient was more awake and when the patient came into the hospital, he was back to his normal self. T he patient has a history of syncope in the past. He has had a history of tachybrady syndrome and wetzel s have a pacemaker that was placed on his left chest wall area. I was told by the ER doctor this was interrogated today and that he did have some V-tach rhythm; however, they were not sure if that was V-tach or not. The patient denies any chest pain or shortness of breath. He denies any cough, fever s at all. PAST MEDICAL HISTORY: As I mentioned before, 1. He has a history of hypertension. 2. Benign enlarged prostate. 3. Dyslipidemia. 4. Diabetes type 2. 5. History of cerebrovascular accident without any residual weakness. 6. He has had atrial fibrillation requiring ablation and is on Eliquis. 7. Chronic kidney disease. 8. Hypothyroid. 9. Strongyloides. PAST SURGICAL HISTORY: He has had a pacemaker inserted, tonsillectomy as a child, prostate biopsy, h emorrhoidectomy, bilateral cataract surgery, hernia repair, endovascular aortic aneurysm repair, abla tion of atrial flutter, and lipoma removal. SOCIAL HISTORY: He is , lives with his . He currently is a former smoker. Alcohol abuse . Denies any other drug use. He is a FULL CODE per patient's family and patient. ALLERGIES: He is allergic to PENICILLIN. MEDICATIONS: He is on Eliquis 2.5 mg b.i.d., calcitriol 0.25 mcg daily, benazepril 10 mg at bedtime, Cardura 2 mg at bedtime, he is on levothyroxine 25 mcg daily, losartan 50 mg daily, metoprolol 100 m g b.i.d., simvastatin 10 mg at bedtime, and Flomax 0.4 mg p.o. daily. FAMILY HISTORY: Positive for diabetes among several family members. REVIEW OF SYSTEMS: All negative except for the ones mentioned above in the HPI. PHYSICAL EXAMINATION: VITAL SIGNS: Temperature of 98.8, blood pressure 160/99, pulse of 57, respirations 16, 98% on room a ir. GENERAL: He is awake, alert, oriented x3, does not appear in distress. CARDIOVASCULAR: S1, S2 present. No murmurs, rubs, or gallops. LUNGS: Clear to auscultation. No rhonchi or wheezes noted. ABDOMEN: Soft, nontender. Bowel sounds are present x2. EXTREMITIES: No edema. Pedal pulses are present x2. NEUROLOGIC: No focal deficits noted. SKIN: Intact. No cuts, bruises, or lesions noted. LABORATORY DATA: WBC of 7, hemoglobin of 13.1, hematocrit of 41, his platelet count is 157. Purchasing Engineer ry: Sodium of 141, potassium of 4.2, BUN of 29, creatinine of 2.34, glucose of 222. Troponin is 0.0 64. BNP was 179. Vitamin D that was done yesterday was 26.2. TSH was 1.59. Chest x-ray did not indicate any acute abnormalities. He did have a urine, which was positive for ni trites and he did have a significant UTI that was noted with no squamous epithelial cells. ASSESSMENT AND PLAN: The patient is a very pleasant 82-year-old male, who presented to the hospital for generalized weakness and also syncope. 1. Urinary tract infection. We will start the patient on IV antibiotics. The patient has had a his tory of coagulase-negative Staph in the urine in the past. We will continue to monitor. We will als o start the patient on IV antibiotics and we will also check a postvoid residual to make sure he is n ot retaining given his history of BPH. 2. History of hypertension. We will continue his blood pressure medications. 3. Mild acute kidney injury on chronic kidney disease. We will continue to monitor. The patient mi t have a transient elevated creatinine from his hypotension. We will continue to monitor. 4. Diabetes. We will continue his home medications and sliding scale insulin. 5. Mild elevated troponins. This is a little bit greater than his baseline. We will continue to mo nitor. If they worsen, we will consult Cardiology. 6. Low vitamin D. We will continue his vitamin D medication. 7. We will get physical therapy to evaluate the patient and will go from there. 8. Deep venous thrombosis prophylaxis. The patient is already on Eliquis. Also, we will get a CT h ead to rule out any bleeds; however, the patient's denied that he hit his head. He just passed out while he was sitting on the toilet.
[2018-01-17 21:44] VITALS: BMI 28.1
[2018-01-18] MEDS: Levothyroxine Sodium 25 MCG TAB PO SCH (06:01)
[2018-01-18 06:30] LABS: #Eosinphils 0.1 thou/uL (0.0-0.7); #Lymphocytes 1.1 thou/uL (1.20-3.40); #Monocytes 0.8 thou/uL (0.11-0.59); %Basophils 0.5 % (0.0-1.0); %Eosinophils 1.8 % (0.0-10.0); %Lymphocytes 13.9 % (21.0-51.0); %Monocytes 10.2 % (0.0-10.0); %Neutrophils 73.5 % (42.0-75.0); Hemoglobin 12.7 g/dL (14.0-18.0); Mean Corpuscular HGB CONC 32.2 g/dL (32.0-36.0); Mean Corpuscular Hemoglobin 30.7 pg (27.0-31.0); Mean Corpuscular Volume 95.2 fL (78.0-98.0); Mean Platelet Volume 7.7 fL (7.4-10.4); Platelet Count 150 thou/uL (130-400); RBC Distribution Width 13.2 % (11.5-14.5); Red Blood Cell (RBC) Count 4.14 mill/uL (4.70-6.10); White Blood Cell (WBC) Count 8.1 thou/uL (4.8-10.8)
[2018-01-18 06:48] LABS: Anion Gap 10 mmol/L (10-20); BUN (Urea Nitrogen) 27 mg/dL (8.4-25.7); Calc. Creatinine Clearance 37 mL/min (70-130); Calcium 9.4 mg/dL (7.8-10.44); Carbon Dioxide 26 mmol/L (23-31); Chloride 108 mmol/L (98-107); Estimated GFR-MDRD 33; Glucose 136 mg/dL (83-110); Potassium 4.1 mmol/L (3.5-5.1); Sodium 140 mmol/L (136-145)
[2018-01-18] MEDS: Apixaban 2.5 MG TAB PO SCH ×2 (08:18→20:09)
[2018-01-18] MEDS: Tamsulosin HCl 0.4 MG CAP PO SCH (08:19)
[2018-01-18] MEDS: Calcitriol 0.25 MCG CAP PO SCH (08:19)
[2018-01-18] MEDS: Metoprolol Tartrate 100 MG TAB PO SCH ×2 (08:19→20:10)
[2018-01-18] MEDS ORDERED: Losartan 25 MG TAB PO SCH ×2 (09:00)
[2018-01-18 09:41] LABS: Troponin I 0.081 ng/mL (< 0.028)
--- NOTE | 2018-01-18 16:04 | PDOC.PN ---
- Subjective Encounter Start Date: 01/18/18 Encounter Start Time: 10:00 Subjective: pt up in bed no complains - Objective Resuscitation Status: Resuscitation Status FULL:Full Resuscitation Vital Signs & Weight: Vital Signs (12 hours) Temp Pulse Pulse Pulse Resp BP BP 01/18/18 15:05 98.3 F 80 16 167/86 H 01/18/18 11:10 97.8 F 62 62 69 15 165/94 H 165/94 H 01/18/18 07:15 98.0 F 66 17 186/80 H Pulse Ox Pulse Ox Pulse Ox 01/18/18 15:05 94 L 01/18/18 11:10 97 97 96 01/18/18 07:15 96 Weight Weight 195 lb 9.6 oz I&O: 01/17/18 01/18/18 01/19/18 06:59 06:59 06:59 Intake Total 240 Balance 240 Result Diagrams: 01/18/18 06:00 01/18/18 06:00 Additional Labs: Accuchecks 01/18/18 01/18/18 01/17/18 10:54 06:07 20:52 POC Glucose 180 H 139 H 131 H Phys Exam - Physical Examination Respiratory: no wheezing, no rales, no rhonchi, wheezing present, clear to auscultation bilateral Cardiovascular: RRR, no significant murmur, no rub, gallop, irregular Gastrointestinal: soft, non-tender, no distention, positive bowel sounds Musculoskeletal: no edema, pulses present, edema present Dx/Plan (1) UTI (urinary tract infection) Status: Acute (2) Syncope Code(s): R55 - SYNCOPE AND COLLAPSE Status: Acute (3) CKD (chronic kidney disease) stage 3, GFR 30-59 ml/min Code(s): N18.3 - CHRONIC KIDNEY DISEASE, STAGE 3 (MODERATE) Status: Chronic (4) Diabetes type 2, controlled Code(s): E11.9 - TYPE 2 DIABETES MELLITUS WITHOUT COMPLICATIONS Status: Chronic - Plan pt's urine cx indicated staph lugdunensis sensitive to levaqin -: will consult id, pt's trops keep worsening pt is asymtomatic -: may consider cardio consult. * . Review of Systems - Review of Systems Respiratory: negative: Cough, Dry, Shortness of Breath, Hemoptysis, SOB with Excertion, Pleuritic Pain, Sputum, Wheezing Cardiovascular: negative: chest pain, palpitations, orthopnea, paroxysmal nocturnal dyspnea, edema, light headedness, other Gastrointestinal: negative: Nausea, Vomiting, Abdominal Pain, Diarrhea, Constipation, Melena, Hematochezia, Other Genitourinary: negative: Dysuria, Frequency, Incontinence, Hematuria, Retention , Other - Medications/Allergies Allergies/Adverse Reactions: Allergies Allergy/AdvReac Type Severity Reaction Status Date / Time loperamide [From Imodium A-D] Allergy Verified 01/17/18 19:32 Penicillins Allergy Hives Verified 01/17/18 19:32 Medications: Current Medications Acetaminophen (Tylenol) 650 mg PO Q4H PRN PRN Reason: Headache/Fever/Mild Pain (1-3) Apixaban (Eliquis) 2.5 mg PO BID [facility] Last Admin: 01/18/18 08:18 Dose: 2.5 mg Calcitriol (Rocaltrol) 0.25 mcg PO DAILY [facility] Last Admin: 01/18/18 08:19 Dose: 0.25 mcg Dextrose/Water (Dextrose 50%) 25 gm SLOW IVP PRN PRN PRN Reason: Hypoglycemia Donepezil HCl (Aricept) 10 mg PO HS [facility] Last Admin: 01/17/18 21:29 Dose: 10 mg Doxazosin Mesylate (Cardura) 2 mg PO HS [facility] Last Admin: 01/17/18 21:29 Dose: 2 mg Glucagon (Glucagon) 1 mg IM PRN PRN PRN Reason: Hypoglycemia Hydralazine HCl (Apresoline) 5 mg SLOW IVP Q4H PRN PRN Reason: Blood Pressure Levofloxacin 500 mg/ Device 100 mls @ 100 mls/hr IVPB Q24HR [facility] Last Admin: 01/18/18 08:18 Dose: 100 mls Dextrose/Water (D5w) 1,000 mls @ 0 mls/hr IV .Q0M PRN PRN Reason: Hypoglycemia Insulin Human Lispro (Humalog) 0 units SC .MILD SLIDING SCALE PRN PRN Reason: Mild Correctional Scale Levothyroxine Sodium (Synthroid) 25 mcg PO 0600 [facility] Last Admin: 01/18/18 06:01 Dose: 25 mcg Losartan Potassium (Cozaar) 50 mg PO DAILY [facility] Last Admin: 01/18/18 08:19 Dose: 50 mg Metoprolol Tartrate (Lopressor) 100 mg PO BID [facility] Last Admin: 01/18/18 08:19 Dose: 100 mg Simvastatin (Zocor) 10 mg PO HS [facility] Last Admin: 01/17/18 21:29 Dose: 10 mg Tamsulosin HCl (Flomax) 0.4 mg PO DAILY [facility] Last Admin: 01/18/18 08:19 Dose: 0.4 mg
[2018-01-18 16:56] LABS: Troponin I 0.076 ng/mL (< 0.028)
--- NOTE | 2018-01-18 19:50 | CON ---
DATE OF CONSULTATION: 01/18/2018 REASON FOR CONSULTATION: Possible urinary tract infection. HISTORY OF PRESENT ILLNESS: An 82-year-old with history of type 2 diabetes, hypertension, and prior CVA without residual impairment who was diagnosed with transitional cell cancer of bladder recently a nd was admitted because of change in mental status, sleepiness, weakness and being found slumped over while sitting in the toilet. Initial BP at home was 90/60, EMS was summoned and he was brought to [facility]. On arrival, he was more aware of self. Apparently, his pacer was interrogated and ther e was a fast rhythm identified. Initial findings include temperature 98.8, blood pressure 160/99, pu lse 57, respirations 16, O2 sat 98%. Oriented x3, in no distress. Lungs are clear. Abdomen is soft . Initial laboratory findings included a white cell count 7.0, hemoglobin 13, platelets 157 with 82% neutrophils. His creatinine was 2.34 and then 1.96, bilirubin 0.4, AST 19, ALT 16. BNP was 179, al bumin 3.3, globulin 2.7. Troponin 0.081. Urinalysis with greater than 50 WBCs. REVIEW OF SYSTEMS: Patient currently is awake and alert, oriented, asking when he is going to go get to go home. Denies any headaches, no visual symptoms. He is back to baseline in terms of his menta l status. No chest pain, no abdominal pain or diarrhea. He never had any genitourinary symptoms rep orted. PAST MEDICAL HISTORY: Type 2 diabetes, BPH, transitional cell cancer of the bladder, lung nodule whi ch was biopsied. Did not show malignancy, renal insufficiency stage 2, atrial fibrillation status po st ablation on Eliquis, and hypothyroidism. PAST SURGICAL HISTORY: Pacemaker insertion, hemorrhoidectomy, cataracts, hernia repair, aortic aneur ysm repair, endovascular lipoma removal. SOCIAL HISTORY: , former smoker. ALLERGIES: PENICILLIN with rash. MEDICATIONS: Currently on Tylenol, Eliquis, Rocaltrol, Aricept, Cardura, glucagon, Apresoline, insul in, levofloxacin, Zocor, and tamsulosin. PHYSICAL EXAMINATION: VITAL SIGNS: T-max 98.3, blood pressure 160/86, pulse 80, respirations 16, O2 sat 94%-97% room air. SKIN: The patient has a peripheral IV access and is voiding in the urinal without problems. No lymp hadenopathy. HEENT: Ocular movements conjugate. Oral cavity normal. Nasal passages patent. NECK: Supple, no jugular vein distention. LUNGS: Symmetric air entry. HEART: S1, S2, regular rate. ABDOMEN: Soft and not distended or tender. No ascites. No bladder distention. EXTREMITIES: No joint inflammatory activity. Pulses 1+ in dorsalis pedis. He moves extremities equ ally, awake, oriented. Follows commands. LABORATORY DATA AND IMAGING DATA: Followup laboratory data; white cell count 8.1, hemoglobin 12, keyla telets 150 with 72% neutrophils. Glucose 122. Microbiology with urine culture with Staphylococcus l ugdunensis. Two sets of blood cultures, no growth. Brain CT with chronic changes. No other abnorma lity noted. Chest x-ray, no acute cardiopulmonary disease. ASSESSMENT: 1. Type 2 diabetes, hypertension, renal insufficiency, chronic, and atrial fibrillation with ablatio n and pacemaker. Transitional cell cancer involving the bladder with recent mass resection in 2017. 2. Change in mental status. 3. Arrhythmia identified in the pacemaker not clear with the nature of the arrhythmia was. 4. Abnormal urinalysis with positive urine culture. DISCUSSION: The patient does not have evidence of a systemic invasive urinary tract infection; there fore, I would recommend a short course of treatment with levofloxacin. He already received, I believ e 2-3 days and should be able to go home off antimicrobial therapy. I think that his postvoid residu al was normal. It is possible arrhythmia led to the changes in mental status noted. Since the CT of brain was done only without contrast, it is possible that he had a small CVA that was not detected i n the initial CT.
[2018-01-18] MEDS: Doxazosin 2 MG TAB PO SCH (20:09)
[2018-01-18] MEDS: Donepezil HCl 10 MG TAB PO SCH (20:09)
[2018-01-18] MEDS: Simvastatin 5 MG TAB PO SCH (20:10)
[2018-01-19 05:48] LABS: #Eosinphils 0.1 thou/uL (0.0-0.7); #Lymphocytes 0.9 thou/uL (1.20-3.40); #Monocytes 0.9 thou/uL (0.11-0.59); #Neutrophils 6.8 thou/uL (1.40-6.50); %Basophils 0.5 % (0.0-1.0); %Eosinophils 1.6 % (0.0-10.0); %Monocytes 9.8 % (0.0-10.0); %Neutrophils 78.1 % (42.0-75.0); Hemoglobin 13.3 g/dL (14.0-18.0); Mean Corpuscular HGB CONC 31.5 g/dL (32.0-36.0); Mean Corpuscular Hemoglobin 29.9 pg (27.0-31.0); Mean Corpuscular Volume 94.9 fL (78.0-98.0); Platelet Count 171 thou/uL (130-400); RBC Distribution Width 13.5 % (11.5-14.5); Red Blood Cell (RBC) Count 4.46 mill/uL (4.70-6.10); White Blood Cell (WBC) Count 8.7 thou/uL (4.8-10.8)
[2018-01-19] MEDS: Levothyroxine Sodium 25 MCG TAB PO SCH (05:53)
[2018-01-19 06:08] LABS: Anion Gap 14 mmol/L (10-20); BUN (Urea Nitrogen) 31 mg/dL (8.4-25.7); Calc. Creatinine Clearance 32 mL/min (70-130); Calcium 10.5 mg/dL (7.8-10.44); Carbon Dioxide 23 mmol/L (23-31); Chloride 108 mmol/L (98-107); Estimated GFR-MDRD 28; Glucose 188 mg/dL (83-110); Potassium 4.2 mmol/L (3.5-5.1); Sodium 141 mmol/L (136-145)
[2018-01-19] MEDS: Tamsulosin HCl 0.4 MG CAP PO SCH (08:22)
[2018-01-19] MEDS: Apixaban 2.5 MG TAB PO SCH (08:22)
[2018-01-19] MEDS: Calcitriol 0.25 MCG CAP PO SCH (08:22)
[2018-01-19] MEDS: Metoprolol Tartrate 100 MG TAB PO SCH (08:22)
[2018-01-19 12:04] VITALS: BP 159/78; TEMP 97.1
[2018-01-19] MEDS ORDERED: hydrALAZINE 25 MG TAB PO SCH ×4 (12:45→21:00)
--- NOTE | 2018-01-19 16:46 | DIS ---
DATE OF ADMISSION: 01/17/2018 DATE OF DISCHARGE: 01/19/2018 DISCHARGE DIAGNOSES: 1. Urinary tract infection. 2. Hypertension. 3. Syncope. 4. Chronic kidney disease. 5. Diabetes. HOSPITAL COURSE: The patient is a very pleasant 82-year-old male with multiple medical issues who ca me into the hospital initially for a syncopal episode. The patient's stated that he was sitting on the commode and became drooling. His blood pressure was in the 90s/60s. The patient did go to [facility] primary care doctor day prior to this and was found to have his urine was positive and also his ur ine culture indicated Staphylococcus lugdunensis, which was susceptible to Levaquin. Given the virul ence of this bacteria, I did consult Dr. Loja, who recommended just continue the Levaquin. The tanya ent will be discharged home with 5 days of Levaquin. He will follow up with his primary care doctor, Kash on . Also, while he was in the hospital, he did have some mild elevated troponins, whic h are trending down, but he did not have any chest pain. No significant EKG changes either. His cre atinine did trend up a little bit from his baseline which was around between 1.9-2.1. I have held hi s losartan. I have put him on hydralazine for the time being though he follows up with lab work karmen cruz is going to be on Saturday and then also he has appointment with his primary care doctor on . I did tell his that if he starts having worsening blood pressure, please come into the ER for further evaluation and also recommended that he drinks a little bit more water. PHYSICAL EXAMINATION: VITAL SIGNS: Temperature of 97.5, 92, 14, 95% on room air, 159/78. GENERAL: He is awake, alert, oriented x3, does not appear in distress. CARDIOVASCULAR: S1, S2 present. No murmurs, rubs or gallops. ABDOMEN: Soft, nontender. Bowel sounds are present x2. EXTREMITIES: No edema. Pedal pulses are present x2. The nurse did a postvoid. There was no significant urine. There was no residual amount was noted. He is going to continue tamsulosin 0.4 daily, pravastatin 20 mg at bedtime, metoprolol 100 mg b.i.d., levothyroxine 25 mcg daily, Lasix 20 mg p.o. p.r.n., finasteride 5 mg daily, doxazosin 2 mg at bedti me, Calcitriol 0.25 mcg daily, Eliquis 2.5 b.i.d., hydralazine 25 t.i.d. and Levaquin 500 mg daily fo r only 5 days and BMP has been ordered for this patient to be done.
== END 2018-01-19 13:18 | disposition home or self-care (01) | DRG 683 ==
LOC: ERS 09:57 → ERHOLD 15:14 → 2NO 18:36
PROVIDERS: ADMIT Internal Medicine; ATTEND Internal Medicine
DX: N17.9 Acute kidney failure, unspecified (principal); N39.0 Urinary tract infection, site not specified; R55 Syncope and collapse; I48.91 Unspecified atrial fibrillation; I12.9 Hypertensive chronic kidney disease with stage 1 through stage 4 chronic kidney disease, or unspecified chronic kidney disease; N18.3 Chronic kidney disease, stage 3 (moderate); B95.7 Other staphylococcus as the cause of diseases classified elsewhere; R74.8 Abnormal levels of other serum enzymes; E78.5 Hyperlipidemia, unspecified; R41.82 Altered mental status, unspecified; E03.9 Hypothyroidism, unspecified; E11.22 Type 2 diabetes mellitus with diabetic chronic kidney disease; N40.0 Benign prostatic hyperplasia without lower urinary tract symptoms; Z85.51 Personal history of malignant neoplasm of bladder; Z95.0 Presence of cardiac pacemaker; Z86.73 Personal history of transient ischemic attack (TIA), and cerebral infarction without residual deficits; Z87.891 Personal history of nicotine dependence; Z79.01 Long term (current) use of anticoagulants; Z88.0 Allergy status to penicillin
CPT/HCPCS: 36415; 36416; 70450; 71045; 71046; 80048; 80053; 80061; 81001; 81003; 81015; 82043; 82306; 82553; 83036; 83690; 83880; 84439; 84443; 84484; 85025; 87040; 87077; 87086; 87186; 93005; 96365; 96367; G8978-GP-CI; G8979-GP-CI; G8980-GP-CI; J0696; J1956

== ENCOUNTER 2018-03-17 02:07 | Observation (INO) | payer MEDICARE, BC ==
[2018-03-17 02:47] LABS: #Eosinphils 0.1 thou/uL (0.0-0.7); #Lymphocytes 0.9 thou/uL (1.20-3.40); #Monocytes 0.6 thou/uL (0.11-0.59); #Neutrophils 5.8 thou/uL (1.40-6.50); %Basophils 0.4 % (0.0-1.0); %Eosinophils 1.4 % (0.0-10.0); %Lymphocytes 12.4 % (21.0-51.0); %Monocytes 8.3 % (0.0-10.0); %Neutrophils 77.5 % (42.0-75.0); Hemoglobin 13.9 g/dL (14.0-18.0); Mean Corpuscular HGB CONC 32.9 g/dL (32.0-36.0); Mean Corpuscular Hemoglobin 31.1 pg (27.0-31.0); Mean Corpuscular Volume 94.6 fL (78.0-98.0); Mean Platelet Volume 7.5 fL (7.4-10.4); Platelet Count 172 thou/uL (130-400); RBC Distribution Width 13.6 % (11.5-14.5); Red Blood Cell (RBC) Count 4.46 mill/uL (4.70-6.10); White Blood Cell (WBC) Count 7.5 thou/uL (4.8-10.8)
[2018-03-17 03:05] LABS: ALT (SGPT) 17 U/L (8-55); AST (SGOT) 19 U/L (5-34); Albumin 3.3 g/dL (3.4-4.8); Alkaline Phosphatase 87 U/L (40-150); Anion Gap 12 mmol/L (10-20); BUN (Urea Nitrogen) 28 mg/dL (8.4-25.7); Bilirubin, Total 0.4 mg/dL (0.2-1.2); Calc. Creatinine Clearance 0 mL/min (70-130); Calcium 9.8 mg/dL (7.8-10.44); Carbon Dioxide 24 mmol/L (23-31); Chloride 108 mmol/L (98-107); Estimated GFR-MDRD 29; Globulin 2.9 g/dL (2.4-3.5); Glucose 185 mg/dL (83-110); Potassium 4.4 mmol/L (3.5-5.1); Protein, Total 6.2 g/dL (5.8-8.1); Sodium 140 mmol/L (136-145)
[2018-03-17 03:35] LABS: CKMB 4.9 ng/mL (0-6.6)
[2018-03-17 05:50] LABS: Troponin I 0.083 ng/mL (< 0.028)
[2018-03-17 06:27] VITALS: BMI 26.3
[2018-03-17] MEDS ORDERED: Ondansetron PF 4 MG/2 ML Vial IVP PRN (06:42)
[2018-03-17] MEDS ORDERED: Acetaminophen 325 MG TAB PO PRN (06:42)
[2018-03-17] MEDS ORDERED: Ondansetron ODT 4 MG TAB SL PRN (06:42)
[2018-03-17 08:57] LABS: Bilirubin Negative (Negative); Blood, Urine Negative (Negative); Clarity CLEAR (Clear); Glucose, Urine (Dipstick) Negative (Negative); Leukocyte Negative (Negative); Nitrite Negative (Negative); Protein, Urine (Dipstick) 30 mg/dL (Neg-Trace); Specific Gravity, Urine 1.013 (1.002-1.036); Urobilinogen 0.2 mg/dL (0.2-1.0)
[2018-03-17 08:59] LABS: Bacteria/HPF None Seen HPF (None Seen); Hyaline Casts/LPF 0-3 HYALINE CAST LPF (0-3 Hyaline); Pathc Cast-AUWi Flag 0.29 (0-2.49); RBC/HPF 0-3 HPF (0-3); Squamous Epithelial 0-3 HPF (0-3); WBC/HPF 0-3 HPF (0-3)
--- NOTE | 2018-03-17 09:20 | RAD ---
PORTABLE CHEST 1 VIEW: Date: 03/17/18 Time: 0342 hours HISTORY: Fall and syncope. FINDINGS: Comparison made with exam of 01/17/18. Left-sided pacemaker device remains in place. The heart size is stable. The aorta is tortuous. No foc al areas of consolidation, pneumothoraces, loyda pulmonary edema, or pleural effusions are seen. IMPRESSION: No acute process. POS: [facility]RLIN
--- NOTE | 2018-03-17 09:20 | RAD ---
RIGHT ELBOW 4 VIEWS: Date: 03/17/18 HISTORY: Fall, right elbow pain. FINDINGS/IMPRESSION: No fracture or dislocation is seen. POS: [facility]
--- NOTE | 2018-03-17 09:33 | CT ---
PRELIMINARY REPORT/[facility]ERGENT[facility] AFTER-HOURS PROCEDURE CT Cervical Spine Without Contrast EXAM DATE/TIME: 03/17/2018 3:57 AM CLINICAL HISTORY: 83 years old, male; Signs and symptoms; Numbness; Patient HX: Er7, prior on pacs, m82 presents to ed for a fall. PT reports PT went into afib and fell, hit his elbow. PT did not hit head but is on blood thinners. PT reports loc due to sudden blood pressure drop. PT reports his feet are numb, this is not normal. PT denies pain in neck but reports pain in elbow. PT reports this is the third ti me this fall w BP drop has happened this year. Hx-no HX of heart failure, hospital for kidney infecti on in january, lab results reviewed. TECHNIQUE: Axial computed tomography images of the cervical spine without intravenous contrast. COMPARISON: No relevant prior studies available. FINDINGS: Vertebrae: No fracture. Discs/Spinal canal/Neural foramina: No spinal stenosis. No neural foraminal narrowing. Soft tissues: Unremarkable. Lungs: Incompletely visualized somewhat nodular parenchymal opacity in the peripheral left upper lobe with central bronchiolar dilatation. This is most likely scarring. Neoplasm not excluded. Incomplete ly visualized 3 mm posterior subpleural left upper lobe pulmonary nodule. IMPRESSION: 1. No fracture. 2. Incompletely visualized somewhat nodular parenchymal opacity in the peripheral left upper lobe wit h central bronchiolar dilatation. This is most likely scarring. Neoplasm not excluded. Thank you for allowing us to participate in the care of your patient. Dictated and Authenticated by: Joshua Rivas MD 03/17/2018 4:30 AM Central Time ([place] & [place]) FINAL REPORT CT CERVICAL SPINE WITH CORONAL AND SAGITTAL REFORMATIONS: Date: 03/17/18 FINDINGS/IMPRESSION: I agree with the preliminary report given by [facility]. POS: [facility]
--- NOTE | 2018-03-17 09:34 | CT ---
PRELIMINARY REPORT/[facility]/EMERGENTY AFTER-HOURS PROCEDURE CT Head Without Contrast EXAM DATE/TIME: 03/17/2018 3:57 AM CLINICAL HISTORY: 83 years old, male; Signs and symptoms; Dizziness; Patient HX: Er7, prior on pacs, m83 presents to ed for a fall. PT reports PT went into afib and fell, hit his elbow. PT did not hit head but is on blood thinners. PT reports loc due to sudden blood pressure drop. PT reports his feet are numb, this is not normal. PT denies pain in neck but reports pain in elbow. PT reports this is the third t courtney this fall w BP drop has happened this year. Hx-no HX of heart failure, [facility] for kidney infect ion in january, lab results reviewed. TECHNIQUE: Axial computed tomography images of the head/brain without contrast. COMPARISON: No relevant prior studies available. FINDINGS: Brain: Volume loss and chronic small vessel ischemic change. Old lacunar infarction(s). No brain gordon a. No intracranial hemorrhage. Ventricles: Normal. No ventriculomegaly. Bones/joints: Normal. No acute fracture. Sinuses: Normal as visualized. No acute sinusitis. Mastoid air cells: Normal as visualized. No mastoid effusion. Soft tissues: Normal. IMPRESSION: No acute brain findings. Thank you for allowing us to participate in the care of your patient. Dictated and Authenticated by: Joshua Rivas MD 03/17/2018 4:22 AM Central Time ([place] & [place]) FINAL REPORT CT BRAIN WITHOUT CONTRAST: Date: 03/17/18 FINDINGS/IMPRESSION: I agree with the preliminary report given by [facility]. POS: [facility]
[2018-03-17 09:55] LABS: Troponin I 0.097 ng/mL (< 0.028)
[2018-03-17] MEDS: Sodium Chloride 0.9% 1,000 ML IV SCH ×2 (10:21→21:58)
[2018-03-17] MEDS: Famotidine 20 MG TAB PO SCH (10:22)
[2018-03-17] MEDS: Levothyroxine Sodium 25 MCG TAB PO SCH (10:22)
[2018-03-17] MEDS: Finasteride 5 MG TAB PO SCH (10:22)
[2018-03-17] MEDS: Tamsulosin HCl 0.4 MG CAP PO SCH (10:22)
[2018-03-17] MEDS: Apixaban 2.5 MG TAB PO SCH ×2 (10:23→20:06)
[2018-03-17] MEDS: hydrALAZINE 25 MG TAB PO SCH ×3 (11:18→20:06)
--- NOTE | 2018-03-17 17:17 | HP ---
PRIMARY CARE PHYSICIAN: Katie Hewitt MD CHIEF COMPLAINT: Syncope. HISTORY OF PRESENT ILLNESS: Mr. Bailey is a pleasant 83-year-old male with past medical history of atrial fibrillation on Eliquis, history of hypertension, CKD, BPH, and diabetes mellitus type 2, who had presented to [facility] early this morning due to a syncopal episode at home. He had been at home with his when he began to stand up; however, he felt dizzy and passed out, he had fell on the floor. However, had denied hitting his head. Scans in the ER, which included a CT of his head was found to be negative. He had complained of right elbow pain, where he had it falling down. However, right elbow x-ray 4-view was negative and showed no fracture or dislocation. A portable chest x-ray revealed no acute process. CT cervical spine was unremarkable and did not show any fracture. The patient appeared quite weak, he was recently hospitalized from 01/17/2018 for similar symptoms, it was found at that time that he had suffered a UTI. He was treated with Levaquin and sent home for outpatient followup. He states symptoms had resolved at that time; however, returned recently. He had denied any chest pain, shortness of breath, or abdominal pain. He denied any seizure-like activity. He denied any headache, blurred vision, or dizziness upon my evaluation. It was determined that the patient be admitted for further workup and evaluation of syncope. PAST MEDICAL HISTORY: Positive for hypertension, enlarged prostate, dyslipidemia, diabetes mellitus type 2, history of CVA, paroxysmal atrial fib currently on Eliquis, chronic kidney disease, and hypothyroidism. PAST SURGICAL HISTORY: Pacemaker insertion, tonsillectomy as a child, prostate biopsy, hemorrhoidectomy, bilateral cataract surgery, hernia repair, endovascular aortic aneurysm repair, ablation of atrial flutter, and lipoma removal. SOCIAL HISTORY: He is and lives with his , he denies any alcohol, tobacco, or illicit drug use. He is full code. ALLERGIES: HE IS ALLERGIC TO PENICILLIN AND LOPERAMIDE. CURRENT HOME MEDICATIONS: 1. Pravastatin 20 mg p.o. at bedtime. 2. Calcitriol 0.25 mcg p.o. at bedtime. 3. Levothyroxine 25 mcg p.o. daily. 4. Tamsulosin 0.4 mg p.o. daily. 5. Doxazosin 2 mg p.o. at bedtime. 6. Apixaban 2.5 mg p.o. b.i.d. 7. Finasteride 5 mg p.o. daily. 8. Metoprolol succinate 100 mg p.o. b.i.d. 9. Hydralazine 25 mg p.o. t.i.d. 10. Donepezil 10 mg p.o. daily. FAMILY HISTORY: Positive for diabetes on several family members per the patient, but denies any cardiac history or heart failure. REVIEW OF SYSTEMS: All negative except the ones mentioned above in the HPI. PHYSICAL EXAMINATION: VITAL SIGNS: BP 152/77, pulse 60, respirations 18, O2 saturations 95% on room air, and temp 97.6 degrees Fahrenheit. GENERAL: The patient is awake, alert, and oriented x3. He does not appear in any acute distress. HEAD: Atraumatic and normocephalic. EENT: Pupils are round and reactive to light. Extraocular muscles intact. Ears, nose, throat clear. Oropharynx clear without exudates or erythema. Uvula is midline. Moist mucous membranes noted. NECK: Soft and supple. No JVD. No bruit noted. Full range of motion. Nontender. CARDIOVASCULAR: Positive S1 and S2. Regular rate and rhythm. No murmurs, rubs, or gallops. LUNGS: Clear to auscultation bilaterally. No wheezes, rhonchi, or rales. ABDOMEN: Soft and nontender. Bowel sounds present. EXTREMITIES: No edema. Radial and pedal pulses palpable. Moves all extremities equally. NEUROLOGIC: Cranial nerves 2 through 12 intact. No focal deficits noted. Strength 5+ bilaterally. SKIN: Warm, dry, and intact. No cuts, bruises, or lesions noted. PSYCHIATRIC: Good mood and affect. No suicidal or homicidal ideation. LABORATORY DATA: WBC was 7.5, RBC 4.46, hemoglobin 13.9, and platelet 172. Sodium 140, potassium 4.4, creatinine 2.17, estimated GFR 29, and glucose 185. CK-MB 4.9 and troponin 0.075, 0.083, and 0.097. DIAGNOSTIC IMAGING: CT of brain showed no acute brain findings, CT cervical spine showed no fracture, and portable chest x-ray showed no acute process. Right elbow 4-view showed no fracture or dislocation. ASSESSMENT AND PLAN: 1. Syncope, obtain orthostatic vital signs, the patient with pacemaker in place. We will obtain a pacemaker interrogation for further evaluation. Continue on the patient's home medications and monitor closely. We will order PT/OT and place on walking program. 2. Hypertension: As above. Continue the patient's home regimen. 3. Chronic kidney disease, continue gentle hydration at this time and await further workup. Hold nephrotoxic medications. This appears to be acute on chronic, the patient's underlying baseline creatinine appears to be around 2.0. 4. Elevated troponin. This appears to be his baseline, likely secondary to above with underlying chronic kidney disease. 5. Diabetes mellitus type 2. Monitor blood sugars with Accu-Cheks daily, placed on insulin sliding scale. Further changes pending the patient's progress. 6. History of paroxysmal atrial fibrillation. We will monitor closely at this time. Continue home medications including Eliquis, place Cardiology consult for further evaluation and recommendations for any changes. We will await pacemaker interrogation. 7. Deep venous thrombosis prophylaxis with patient's home medication of Eliquis. 8. Gastrointestinal prophylaxis with Pepcid twice daily. 9. Code status, full code. Disposition and further medical management pending the patient's progress and clinical findings. Job ID: [id number]
[2018-03-17] MEDS ORDERED: Doxazosin 2 MG TAB PO SCH (21:00)
[2018-03-17] MEDS ORDERED: Calcitriol 0.25 MCG CAP PO SCH (21:00)
[2018-03-17] MEDS ORDERED: Atorvastatin Calcium 10 MG TAB PO SCH (21:00)
[2018-03-18 03:09] VITALS: TEMP 97.7
[2018-03-18 06:49] LABS: #Eosinphils 0.1 thou/uL (0.0-0.7); #Lymphocytes 1.1 thou/uL (1.20-3.40); #Monocytes 0.6 thou/uL (0.11-0.59); #Neutrophils 3.9 thou/uL (1.40-6.50); %Basophils 0.5 % (0.0-1.0); %Eosinophils 2.2 % (0.0-10.0); %Lymphocytes 19.1 % (21.0-51.0); %Monocytes 10.3 % (0.0-10.0); Hemoglobin 12.6 g/dL (14.0-18.0); Mean Corpuscular HGB CONC 32.8 g/dL (32.0-36.0); Mean Corpuscular Hemoglobin 31.1 pg (27.0-31.0); Mean Corpuscular Volume 94.9 fL (78.0-98.0); Mean Platelet Volume 7.5 fL (7.4-10.4); Platelet Count 160 thou/uL (130-400); RBC Distribution Width 13.6 % (11.5-14.5); Red Blood Cell (RBC) Count 4.05 mill/uL (4.70-6.10); White Blood Cell (WBC) Count 5.7 thou/uL (4.8-10.8)
[2018-03-18 07:09] LABS: Anion Gap 11 mmol/L (10-20); BUN (Urea Nitrogen) 27 mg/dL (8.4-25.7); Calc. Creatinine Clearance 37 mL/min (70-130); Calcium 9.3 mg/dL (7.8-10.44); Carbon Dioxide 23 mmol/L (23-31); Chloride 107 mmol/L (98-107); Estimated GFR-MDRD 34; Glucose 134 mg/dL (83-110); Potassium 4.2 mmol/L (3.5-5.1); Sodium 137 mmol/L (136-145)
[2018-03-18 07:29] VITALS: BP 153/78
[2018-03-18] MEDS: Tamsulosin HCl 0.4 MG CAP PO SCH (08:17)
[2018-03-18] MEDS: Finasteride 5 MG TAB PO SCH (08:17)
[2018-03-18] MEDS: Levothyroxine Sodium 25 MCG TAB PO SCH (08:17)
[2018-03-18] MEDS: Famotidine 20 MG TAB PO SCH (08:17)
[2018-03-18] MEDS: hydrALAZINE 25 MG TAB PO SCH (08:17)
[2018-03-18] MEDS ORDERED: Doxazosin 2 MG TAB PO SCH ×2 (08:57→21:00)
[2018-03-18] MEDS: Apixaban 2.5 MG TAB PO SCH (09:41)
--- NOTE | 2018-03-22 18:29 | EKG ---
Test Reason : Blood Pressure : / mmHG Vent. Rate : 115 BPM Atrial Rate : 115 BPM P-R Int : 000 ms QRS Dur : 120 ms QT Int : 346 ms P-R-T Axes : 000 055 -30 degrees QTc Int : 478 ms Demand pacemaker; interpretation is based on intrinsic rhythm Atrial fibrillation with rapid ventricular response with premature ventricular or aberrantly conducte d complexes Right bundle branch block T wave abnormality, consider inferior ischemia or digitalis effect Abnormal ECG Confirmed by FREIDA SANDERSON DO ([id number]), book or script editor MEJIA SINGH ([id number]) on 03/22/2018 6:29:11 PM Referred By: Confirmed By:FREIDA SANDERSON DO
== END 2018-03-18 11:13 | disposition home or self-care (01) ==
LOC: ERS 02:07 → 2SW 05:04
PROVIDERS: ADMIT Internal Medicine; ATTEND Internal Medicine
DX: R55 Syncope and collapse (principal); I12.9 Hypertensive chronic kidney disease with stage 1 through stage 4 chronic kidney disease, or unspecified chronic kidney disease; E11.22 Type 2 diabetes mellitus with diabetic chronic kidney disease; N18.9 Chronic kidney disease, unspecified; I48.0 Paroxysmal atrial fibrillation; N40.0 Benign prostatic hyperplasia without lower urinary tract symptoms; E78.5 Hyperlipidemia, unspecified; E03.9 Hypothyroidism, unspecified; R79.89 Other specified abnormal findings of blood chemistry; Z86.73 Personal history of transient ischemic attack (TIA), and cerebral infarction without residual deficits; Z79.01 Long term (current) use of anticoagulants; Z79.899 Other long term (current) drug therapy; Z88.0 Allergy status to penicillin; Z88.8 Allergy status to other drugs, medicaments and biological substances; Z98.890 Other specified postprocedural states; W19.XXXA Unspecified fall, initial encounter
CPT/HCPCS: 70450; 71045; 72125; 73080; 80048; 80053; 81001; 82553; 84484 ×2; 85025 ×2; 93005; 96360; 96361 ×2; 97116; 97139 ×2; 99285; G0378 ×2; G8978; G8979; G8980; 36415

== ENCOUNTER 2018-10-12 17:56 | Observation (INO) | payer MEDICARE, BC ==
[2018-10-12 18:27] LABS: #Eosinphils 0.2 thou/uL (0.0-0.7); #Lymphocytes 1.6 thou/uL (1.20-3.40); #Monocytes 0.6 thou/uL (0.11-0.59); #Neutrophils 5.1 thou/uL (1.40-6.50); %Basophils 0.6 % (0.0-1.0); %Lymphocytes 21.3 % (21.0-51.0); %Monocytes 7.9 % (0.0-10.0); %Neutrophils 68.2 % (42.0-75.0); Hemoglobin 14.7 g/dL (14.0-18.0); Mean Corpuscular HGB CONC 32.3 g/dL (32.0-36.0); Mean Corpuscular Hemoglobin 32.1 pg (27.0-31.0); Mean Corpuscular Volume 99.4 fL (78.0-98.0); Mean Platelet Volume 7.7 fL (7.4-10.4); Platelet Count 165 thou/uL (130-400); RBC Distribution Width 12.7 % (11.5-14.5); Red Blood Cell (RBC) Count 4.59 mill/uL (4.70-6.10); White Blood Cell (WBC) Count 7.4 thou/uL (4.8-10.8)
--- NOTE | 2018-10-12 18:36 | CT ---
Head CT without contrast 10/12/2018: COMPARISON: 03/17/2018 HISTORY: Fall, trauma, syncope, pain TECHNIQUE: Axial CT imaging at 5 mm intervals from vertex through skull base without contrast FINDINGS: The visualized paranasal sinuses and mastoid air cells are well aerated. No displaced leida rial fracture. Stable periventricular hypodensity consistent with small vessel disease. Stable cerebral volume loss. No intracranial hemorrhage, midline shift, or mass effect noted. Stable remote bilateral cerebellar infarctions. IMPRESSION: Stable chronic findings as described above. No intracranial hemorrhage or displaced leida rial fracture.
[2018-10-12 18:48] LABS: ALT (SGPT) 19 U/L (8-55); AST (SGOT) 20 U/L (5-34); Albumin 3.6 g/dL (3.4-4.8); Alkaline Phosphatase 99 U/L (40-150); Anion Gap 13 mmol/L (10-20); BUN (Urea Nitrogen) 30 mg/dL (8.4-25.7); Bilirubin, Total 0.6 mg/dL (0.2-1.2); Calc. Creatinine Clearance 0 mL/min (70-130); Calcium 9.6 mg/dL (7.8-10.44); Carbon Dioxide 22 mmol/L (23-31); Chloride 106 mmol/L (98-107); Estimated GFR-MDRD 29; Globulin 2.5 g/dL (2.4-3.5); Glucose 179 mg/dL (83-110); Potassium 4.4 mmol/L (3.5-5.1); Protein, Total 6.1 g/dL (5.8-8.1); Sodium 137 mmol/L (136-145)
[2018-10-12 19:09] LABS: CKMB 3.9 ng/mL (0-6.6)
--- NOTE | 2018-10-12 19:19 | RAD ---
PORTABLE CHEST: HISTORY: The patient is status post fall. Diffuse pain. COMPARISON: 03/17/2018 FINDINGS: Heart size is within normal limits. A pacemaker is present. The lungs are clear of any infiltrative process. No signs of failure. IMPRESSION: No active intrathoracic disease. POS: CHUCK
[2018-10-12 21:18] LABS: Bacteria/HPF None Seen HPF (None Seen); Bilirubin Negative (Negative); Blood, Urine Negative (Negative); Clarity Clear (Clear); Glucose, Urine (Dipstick) 30 mg/dL (Negative); Leukocyte Negative Leu/uL (Negative); Nitrite Negative (Negative); Protein, Urine (Dipstick) 30 mg/dL (Neg-Trace); RBC/HPF 0-3 HPF (0-3); Squamous Epithelial None Seen HPF (0-3); Urobilinogen Normal mg/dL (Less than 2); WBC/HPF 0-3 HPF (0-3)
[2018-10-12 22:36] LABS: Troponin I 0.041 ng/mL (< 0.028)
[2018-10-12] MEDS ORDERED: Acetaminophen 650 MG Suppository PR PRN (23:18)
[2018-10-12] MEDS ORDERED: Ondansetron PF 4 MG/2 ML Vial IVP PRN (23:18)
[2018-10-12] MEDS ORDERED: Acetaminophen 325 MG TAB PO PRN (23:18)
[2018-10-12] MEDS ORDERED: Ondansetron ODT 4 MG TAB PO PRN (23:18)
[2018-10-12] MEDS ORDERED: Dextrose 50% Abboject 50 ML SYRINGE SLOW IVP PRN (23:30)
[2018-10-12] MEDS ORDERED: HumaLOG 300 UNITS/3 ML VIAL SC PRN (23:30)
[2018-10-12] MEDS ORDERED: Dextrose 5% in Water 1,000 ML IV PRN (23:30)
--- NOTE | 2018-10-13 00:33 | HP ---
PRIMARY CARE DOCTOR: Dr. Katie Hewtit. CODE STATUS: As of now is full code. TIME OF EVALUATION: 11:20 p.m. CHIEF COMPLAINT: Syncope. HISTORY OF PRESENT ILLNESS: This is an 83-year-old male patient with past medical history of dementia. The patient was transferred from [place]. Also history of arrhythmia with atrial fibrillation status post pacemaker, AAA, diabetes, hyperlipidemia, came to the hospital after having an episode of unwitnessed fall , unclear etiology, symptoms were severe. The patient is a poor historian. REVIEW OF SYSTEMS: Unable to obtain. The patient has underlying dementia. PAST MEDICAL HISTORY: As mentioned in the HPI. PAST SURGICAL HISTORY: Stent placed in the aorta, hemorrhoids, pacemaker. PSYCHIATRIC HISTORY: No previous psych history. FAMILY HISTORY: Reviewed and non contributory for current presentation. SOCIAL HISTORY: No alcohol use. No drugs. No smoking history. KNOWN ALLERGIES: Loperamide, penicillin. REPORTED MEDICATIONS: 1. Metoprolol. 2. Calcitriol. 3. Pravastatin. 4. Eliquis. 5. Donepezil. 6. Flomax. 7. Levothyroxine. 8. Multaq. PHYSICAL EXAMINATION: VITAL SIGNS: On presentation, blood pressure 135/84 with heart rate 88, respiratory rate was 17, temperature 97.9, pain was 0/10, oxygen saturation 98. GENERAL APPEARANCE: The patient is alert, disoriented, not in acute distress. HEENT: Eyes, normal conjunctivae. Moist oral mucosa. Anicteric. No JVD. RESPIRATORY: Bilateral air entry. No rales. No wheezes. Symmetric expansion. CARDIOVASCULAR: Normal rate, regular rhythm. No murmurs. No gallop. No edema. ABDOMEN: Soft. Normal bowel sounds. MUSCULOSKELETAL: Baseline range of motion and strength. SKIN: Warm, intact. No pallor. No rash. No redness. Capillary refill seems to intact. NEURO: No evidence of any new focal weakness. The patient is disoriented. The patient has underlying dementia. Cranial nerves seem to be intact. PSYCH: The patient has underlying dementia, unable to fully explore. DIAGNOSTIC STUDIES: EKG was reviewed. The patient has paced rhythm at the rate of 79 with SC of 214, QRS 148, QT corrected 536. Chest x-ray was reviewed. The patient has no active intrathoracic disease. Brain CT, the patient has stable chronic findings as described above. No intracranial hemorrhage or displaced calvarial fracture. LABORATORY DATA: Reviewed. The patient has white count 7.4, hemoglobin 14.7, MCV 99.4, platelet count 165. Chemistry; sodium 137, potassium 4.4, chloride 106, carbon dioxide 22, anion gap 13, BUN 30, creatinine 2.22, previous creatinine was 2.34, GFR 29, glucose 179, calcium 9.6, total bilirubin 0.6. LFTs were negative. Troponin 0.033, second 0.041. Serum total protein 6.1, albumin 3.6, globulin 2.5, albumin globulin ratio is 1.4. Urine was done, was negative. ASSESSMENT AND PLAN: The patient will be placed in the hospital with following medical problems: 1. Syncope. We will place the patient on the monitor. We will interrogate pacemaker. We will do echo since the last one was in March 2017, carotid Doppler. Further workup depending on initial results. 2. Dementia. The patient will need support as inpatient. 3. History of atrial fibrillation with pacemaker as of now, the pacemaker is working. We will monitor. We will reconcile home medications. 4. Hyperlipidemia. Low-cholesterol diet is advised. Reconcile home medications. 5. Uncontrolled diabetes with blood sugar 179. We will place the patient on sliding scale. 6. Deep venous thrombosis prophylaxis. Job ID: [id number] [facility]
[2018-10-13 01:19] LABS: Troponin I 0.044 ng/mL (< 0.028)
[2018-10-13 01:45] VITALS: BMI 24.9
[2018-10-13 04:37] LABS: #Eosinphils 0.1 thou/uL (0.0-0.7); #Lymphocytes 1.1 thou/uL (1.20-3.40); #Monocytes 0.8 thou/uL (0.11-0.59); #Neutrophils 5.2 thou/uL (1.40-6.50); %Basophils 0.2 % (0.0-1.0); %Eosinophils 1.1 % (0.0-10.0); %Lymphocytes 14.8 % (21.0-51.0); %Monocytes 10.9 % (0.0-10.0); Hemoglobin 13.7 g/dL (14.0-18.0); Mean Corpuscular Hemoglobin 31.4 pg (27.0-31.0); Mean Platelet Volume 7.7 fL (7.4-10.4); Platelet Count 153 thou/uL (130-400); RBC Distribution Width 12.6 % (11.5-14.5); Red Blood Cell (RBC) Count 4.36 mill/uL (4.70-6.10); White Blood Cell (WBC) Count 7.1 thou/uL (4.8-10.8)
[2018-10-13 04:48] LABS: Anion Gap 11 mmol/L (10-20); BUN (Urea Nitrogen) 34 mg/dL (8.4-25.7); Calc. Creatinine Clearance 29 mL/min (70-130); Calcium 9.8 mg/dL (7.8-10.44); Carbon Dioxide 25 mmol/L (23-31); Chloride 106 mmol/L (98-107); Estimated GFR-MDRD 28; Glucose 122 mg/dL (83-110); Potassium 4.2 mmol/L (3.5-5.1); Sodium 138 mmol/L (136-145)
--- NOTE | 2018-10-13 08:12 | ULT ---
Ultrasound Doppler duplex carotid: DATE: 10/13/2018 HISTORY: 83-year-old male status post syncope TECHNIQUE: Grayscale, color-flow, and spectral analysis, of major arteries of neck. FINDINGS: Mild calcified plaque at bilateral proximal internal carotid arteries, including carotid bulbs. Vertebral artery flow antegrade bilaterally. Highest peak systolic velocities in the internal carotid arteries: Right: 50 cm/s Left: 30 cm/s. ICA/CCA ratios: Right: 1.0 Left: 0.8 IMPRESSION: 1. Mild atherosclerosis of bilateral proximal internal carotid arteries. 2. No hemodynamically significant stenosis.
[2018-10-13] MEDS ORDERED: Furosemide 20 MG TAB PO PRN (11:51)
[2018-10-13] MEDS ORDERED: hydrALAZINE 20 MG/ML VIAL SLOW IVP PRN (11:52)
[2018-10-13] MEDS ORDERED: hydrALAZINE 20 MG/ML VIAL ONE (11:59)
[2018-10-13 16:01] VITALS: BP 145/73; TEMP 98
[2018-10-13] MEDS ORDERED: Dronedarone HCl 400 MG TAB PO SCH (17:00)
[2018-10-13] MEDS ORDERED: Calcitriol 0.25 MCG CAP PO SCH (21:00)
[2018-10-13] MEDS ORDERED: Apixaban 2.5 MG TAB PO SCH (21:00)
[2018-10-13] MEDS ORDERED: Atorvastatin Calcium 10 MG TAB PO SCH (21:00)
[2018-10-14] MEDS ORDERED: Finasteride 5 MG TAB PO SCH (09:00)
[2018-10-14] MEDS ORDERED: Levothyroxine Sodium 25 MCG TAB PO SCH (09:00)
[2018-10-14] MEDS ORDERED: Donepezil HCl 10 MG TAB PO SCH (09:00)
[2018-10-14] MEDS ORDERED: Tamsulosin HCl 0.4 MG CAP PO SCH (09:00)
== END 2018-10-13 17:18 | disposition home or self-care (01) ==
LOC: ERS 17:56 → 2SW 21:44
PROVIDERS: ADMIT Hospitalist; ATTEND Hospitalist
DX: R55 Syncope and collapse (principal); F03.90 Unspecified dementia, unspecified severity, without behavioral disturbance, psychotic disturbance, mood disturbance, and anxiety; I48.91 Unspecified atrial fibrillation; E78.5 Hyperlipidemia, unspecified; E11.9 Type 2 diabetes mellitus without complications; I65.23 Occlusion and stenosis of bilateral carotid arteries; Z95.0 Presence of cardiac pacemaker; Z88.0 Allergy status to penicillin; Z88.8 Allergy status to other drugs, medicaments and biological substances; Z79.01 Long term (current) use of anticoagulants; Z79.899 Other long term (current) drug therapy; W19.XXXA Unspecified fall, initial encounter
CPT/HCPCS: 70450; 71045; 80048; 80053; 82553; 82962; 84484 ×3; 85025 ×2; 93005; 93306; 93880; 99285; G0378 ×2; 36415; 36416; 81003; 81015; J0360

== ENCOUNTER 2019-05-02 15:04 | Emergency (ER) | payer MEDICARE, BC ==
--- NOTE | 2019-05-02 15:52 | RAD ---
XR Chest 1 View Portable HISTORY: Syncope, hypotension COMPARISON: 10/12/2018 FINDINGS: The heart size is normal. Left-sided pacemaker device is again seen. The aorta is tortuous. The lungs are well expanded without focal areas of consolidation, pneumothorax or pleural effusions. IMPRESSION: No radiographic evidence of acute cardiopulmonary process.
[2019-05-02 16:59] LABS: #Eosinphils 0.1 thou/uL (0.0-0.7); #Lymphocytes 0.5 thou/uL (1.20-3.40); #Monocytes 0.5 thou/uL (0.11-0.59); #Neutrophils 6.3 thou/uL (1.40-6.50); %Basophils 0.6 % (0.0-1.0); %Eosinophils 1.2 % (0.0-10.0); %Lymphocytes 6.8 % (21.0-51.0); %Monocytes 7.1 % (0.0-10.0); %Neutrophils 84.4 % (42.0-75.0); Hemoglobin 14.1 g/dL (14.0-18.0); Mean Corpuscular HGB CONC 33.4 g/dL (32.0-36.0); Mean Corpuscular Volume 98.9 fL (78.0-98.0); Mean Platelet Volume 8.4 fL (7.4-10.4); Platelet Count 136 thou/uL (130-400); RBC Distribution Width 12.9 % (11.5-14.5); Red Blood Cell (RBC) Count 4.27 mill/uL (4.70-6.10); White Blood Cell (WBC) Count 7.5 thou/uL (4.8-10.8)
[2019-05-02 17:06] LABS: INR-International Normal Ratio 1.1; PTT 26.5 SEC (22.9-36.1); Prothrombin Time 14.6 SEC (12.0-14.7)
[2019-05-02 17:17] LABS: Bilirubin Negative (Negative); Blood, Urine Negative (Negative); Clarity Clear (Clear); Glucose, Urine (Dipstick) Normal (Negative); Leukocyte Negative Leu/uL (Negative); Nitrite Negative (Negative); Protein, Urine (Dipstick) 20 mg/dL (Neg-Trace); Urobilinogen Normal mg/dL (Less than 2)
[2019-05-02 17:22] LABS: ALT (SGPT) 22 U/L (8-55); AST (SGOT) 24 U/L (5-34); Albumin 3.5 g/dL (3.4-4.8); Alkaline Phosphatase 93 U/L (40-110); Anion Gap 12 mmol/L (10-20); BUN (Urea Nitrogen) 31 mg/dL (8.4-25.7); Bilirubin, Total 0.4 mg/dL (0.2-1.2); Calc. Creatinine Clearance 0 mL/min (70-130); Calcium 9.4 mg/dL (7.8-10.44); Carbon Dioxide 25 mmol/L (23-31); Chloride 107 mmol/L (98-107); Estimated GFR-MDRD 25; Globulin 2.5 g/dL (2.4-3.5); Glucose 187 mg/dL (83-110); Potassium 4.8 mmol/L (3.5-5.1); Sodium 139 mmol/L (136-145)
[2019-05-02 17:43] LABS: CKMB 3.8 ng/mL (0-6.6)
--- NOTE | 2019-05-02 18:25 | CT ---
CT BRAIN WITHOUT CONTRAST: HISTORY: Fall, head injury. COMPARISON: 10/12/2018 FINDINGS: Changes of cortical atrophy, chronic small cell ischemic disease and old infarctions in the cerebella r hemispheres are again seen. No evidence of acute infarct, hemorrhage, midline shift or abnormal extra-axial fluid collections is seen. The ventricular size is appropriate and the basilar cisterns are patent. The bony calvarium is intact. The visualized paranasal sinuses and mastoid air cells are well aerated. IMPRESSION: No CT evidence of acute intracranial process.
[2019-05-02 19:36] LABS: Troponin I 0.039 ng/mL (< 0.028)
== END 2019-05-02 19:59 | disposition home or self-care (01) ==
LOC: ERS 15:04
DX: R55 Syncope and collapse (principal); S00.412A Abrasion of left ear, initial encounter; I48.92 Unspecified atrial flutter; E11.9 Type 2 diabetes mellitus without complications; E78.5 Hyperlipidemia, unspecified; F03.90 Unspecified dementia, unspecified severity, without behavioral disturbance, psychotic disturbance, mood disturbance, and anxiety; Z86.73 Personal history of transient ischemic attack (TIA), and cerebral infarction without residual deficits; Z87.891 Personal history of nicotine dependence; Z79.01 Long term (current) use of anticoagulants; Z79.899 Other long term (current) drug therapy; W07.XXXA Fall from chair, initial encounter
CPT/HCPCS: 36415; 70450; 71045; 80053; 81003; 82553; 83605; 84484; 85025; 85610; 85730; 87040; 87086; 93005

== ENCOUNTER 2019-10-19 09:23 | Inpatient (IN) | payer MEDICARE, BC, OTHER ==
[2019-10-19] MEDS ORDERED: Acetaminophen 500 MG TAB ONE (11:13)
[2019-10-19 11:22] LABS: #Lymphocytes 0.3 thou/uL (1.20-3.40); #Monocytes 0.6 thou/uL (0.11-0.59); %Eosinophils 0.1 % (0.0-10.0); %Lymphocytes 5.9 % (21.0-51.0); %Monocytes 11.9 % (0.0-10.0); %Neutrophils 82.1 % (42.0-75.0); Hemoglobin 14.5 g/dL (14.0-18.0); Mean Corpuscular HGB CONC 32.5 g/dL (32.0-36.0); Mean Corpuscular Hemoglobin 31.6 pg (27.0-31.0); Mean Corpuscular Volume 97.2 fL (78.0-98.0); Mean Platelet Volume 8.4 fL (7.4-10.4); Platelet Count 135 thou/uL (130-400); White Blood Cell (WBC) Count 4.9 thou/uL (4.8-10.8)
--- NOTE | 2019-10-19 11:27 | RAD ---
XR Chest 1 View Portable HISTORY: Shortness of breath. History of COPD. COMPARISON: 10/16/2019 exam. FINDINGS: Heart size is borderline enlarged with a pacemaker. Bibasilar linear interstitial changes a re felt to be similar to the prior exam given differences in technique. IMPRESSION: Stable exam. Chronic appearing lung changes with linear atelectasis or scarring in the evelia ng bases.
[2019-10-19 11:41] LABS: ALT (SGPT) 17 U/L (8-55); AST (SGOT) 30 U/L (5-34); Albumin 3.5 g/dL (3.4-4.8); Alkaline Phosphatase 69 U/L (40-110); Anion Gap 14 mmol/L (10-20); BUN (Urea Nitrogen) 34 mg/dL (8.4-25.7); Bilirubin, Total 0.5 mg/dL (0.2-1.2); Calc. Creatinine Clearance 0 mL/min (70-130); Calcium 9.7 mg/dL (7.8-10.44); Carbon Dioxide 22 mmol/L (23-31); Chloride 107 mmol/L (98-107); Estimated GFR-MDRD 22; Globulin 3.1 g/dL (2.4-3.5); Glucose 114 mg/dL (83-110); Protein, Total 6.6 g/dL (5.8-8.1); Sodium 138 mmol/L (136-145)
[2019-10-19 12:02] LABS: CKMB 1.8 ng/mL (0-6.6)
[2019-10-19] MEDS ORDERED: cefTRIAXone\\ROCEPHIN 2 GM VIAL ONE (12:15)
[2019-10-19] MEDS ORDERED: Dexamethasone 10 MG/ML VIAL ONE (13:02)
[2019-10-19 14:53] VITALS: BMI 25.7
[2019-10-19] MEDS ORDERED: Ondansetron ODT 4 MG TAB SL PRN (15:53)
[2019-10-19] MEDS ORDERED: Ondansetron PF 4 MG/2 ML Vial IVP PRN ×2 (15:53→17:57)
[2019-10-19] MEDS ORDERED: Sodium Chloride 0.9% 1,000 ML IV SCH (15:53)
[2019-10-19] MEDS ORDERED: Acetaminophen 325 MG TAB PO PRN (15:53)
[2019-10-19 16:07] LABS: Troponin I 0.292 ng/mL (< 0.028)
[2019-10-19] MEDS ORDERED: Albuterol Sulfate 2.5 mg/3 ml Neb NEB PRN (17:57)
[2019-10-19] MEDS ORDERED: hydrALAZINE 20 MG/ML VIAL SLOW IVP PRN (17:57)
[2019-10-19] MEDS ORDERED: Ondansetron ODT 4 MG TAB PO PRN (17:57)
[2019-10-19] MEDS ORDERED: Benzonatate 100 MG CAP PO PRN (17:57)
[2019-10-19] MEDS ORDERED: Acetaminophen 500 MG TAB PO PRN (17:57)
[2019-10-19] MEDS ORDERED: Azithromycin 500 MG in Sodium Chloride 0.9% 250 ML 250 ML IVPB SCH (18:00)
[2019-10-19 18:13] LABS: Troponin I 0.305 ng/mL (< 0.028)
[2019-10-19] MEDS ORDERED: Albuterol Sulfate 2.5 mg/3 ml Neb NEB SCH (18:15)
[2019-10-19] MEDS: Sodium Chloride 0.9% 1,000 ML IV SCH (18:34)
[2019-10-19] MEDS ORDERED: Albuterol 200 PUFF (6.7GM INHALER) INH PRN (18:45)
[2019-10-19] MEDS ORDERED: Albuterol 200 PUFF (6.7GM INHALER) INH SCH (18:45)
[2019-10-19] MEDS: Calcitriol 0.25 MCG CAP PO SCH (20:30)
[2019-10-19] MEDS: Famotidine 20 MG TAB PO SCH (20:30)
[2019-10-19] MEDS: Apixaban 2.5 MG TAB PO SCH (20:30)
--- NOTE | 2019-10-19 21:19 | HP ---
PRIMARY CARE PROVIDER: Katie Hewitt MD CHIEF COMPLAINT: Cough and general malaise. HISTORY OF PRESENT ILLNESS: This is an 84-year-old male, who presents to [facility] Emergency Department with complaints of increased cough, shortness of breath, and general fatigue. The history is obtained after discussions with the emergency room attending as well as review of the ER nursing notes as the patient is a poor historian with a history of Alzheimer dementia. The patient apparently had tested positive for COVID-19 on 10/14/2019, now complaining of difficulty with shortness of breath and lethargy. The patient's also positive for COVID-19. In the emergency room, the patient underwent general evaluation with initial O2 saturation noted in the mid 90% range on room air. Chest imaging showed chronic changes and the patient received IV dexamethasone 10 mg x1 dose in addition to Rocephin 2 g IV push and Tylenol. The patient also received 1 L of intravenous normal saline. PAST MEDICAL HISTORY: 1. Alzheimer dementia. 2. Abdominal aortic aneurysm. 3. Hypertension. 4. Hyperlipidemia. 5. Chronic anticoagulation with Eliquis. 6. Hypothyroidism. PAST SURGICAL HISTORY: 1. Status post pacemaker insertion. 2. Status post tonsillectomy. 3. Status post prostate biopsy. 4. Status post hemorrhoidectomy. 5. Status post bilateral cataract removal. 6. Status post hernia repair. 7. Status post endovascular repair of aortic aneurysm. 8. Status post cardiac ablation for atrial flutter. 9. Status post lipoma resection. CURRENT MEDICATIONS: 1. Eliquis 2.5 mg p.o. b.i.d. 2. Rocaltrol 0.25 mcg p.o. at bedtime. 3. Donepezil 10 mg p.o. daily. 4. Multaq 400 mg p.o. b.i.d. 5. Finasteride 5 mg p.o. daily. 6. Levothyroxine 25 mcg p.o. daily. ALLERGIES: TO LOPERAMIDE AND PENICILLIN. FAMILY HISTORY: Positive for diabetes mellitus. SOCIAL HISTORY: Resides in [place], [place] at [facility]. . Former tobacco use, none currently. History of alcohol use, none currently. No illicit drug use. REVIEW OF SYSTEMS: Unobtainable due to the patient's advanced Alzheimer dementia. PHYSICAL EXAMINATION: VITAL SIGNS: Blood pressure 131/80, pulse 65, respiratory rate 18, temperature 98.5 degrees Fahrenheit, and O2 saturation 92% on room air. GENERAL APPEARANCE: This is an 84-year-old male, alert and oriented x1 to person. Pleasant, responsive to questions, in no acute distress. HEENT: Pupils are equal, round, reactive to light and accommodation. Extraocular muscles are intact. No scleral icterus. No conjunctival injection. Nares patent. OP is clear. Oral mucosa dry. NECK: Supple. No cervical adenopathy. No thyromegaly. No carotid bruits. No JVD appreciated. Cervical spine with full active and passive range of motion. No meningeal signs noted. CHEST: Diminished breath sounds in the bases bilaterally. Occasional rhonchi noted. CARDIOVASCULAR EXAM: S1 and S2 without noted murmur, rub or gallop. Left upper chest wall with pacemaker device in place. ABDOMEN: Rounded, soft, nontender, and nondistended. Bowel sounds are positive in all 4 quadrants. There is no hepatosplenomegaly. No abdominal bruits. No rebound or guarding appreciated. EXTREMITIES: Warm and dry with fair turgor. No clubbing, cyanosis, or asymmetric edema appreciated. Pulses palpable distally at the dorsalis pedis, posterior tibial, and popliteal arteries bilaterally. Capillary refill less than 2 seconds. NEUROLOGIC: Cranial nerves 2 through 12 are grossly intact. No focal or lateralizing signs appreciated. PERTINENT LABORATORY AND X-RAY FINDINGS: Sodium 138, potassium 5.0, chloride 107, CO2 of 22, BUN 34, creatinine 2.72, estimated GFR 22, glucose 114, lactic acid level 1.5, and calcium 9.7. LFTs within normal limits. Troponin I ranged between 0.213 to 0.292. CBC showed a white blood cell count of 4.9, hemoglobin 14.5, hematocrit 45, and platelet count 135, with 82% neutrophils. Portable chest x-ray dated 10/19/2019, showed chronic changes bilaterally without acute infiltrate. EKG dated 10/19/2019 by my interpretation shows atrial paced rhythm in the 80s. Normal R-wave progression noted in the precordial leads. Right bundle-branch block pattern noted. COVID-19 PCR positive on 10/14/2019. ASSESSMENT/PLAN: 1. COVID-19 positive. The patient will be admitted to the telemetry unit on the COVID. Continue respiratory isolation. Zithromax 500 mg IV daily with additional dexamethasone 6 mg p.o. daily. Albuterol metered-dose inhaler 2 puffs inhaled q.4 hours p.r.n. Vitamin C 1000 mg daily with additional zinc sulfate 220 mg daily. Oxygen to maintain O2 saturations greater than or equal to 90% as needed. 2. Acute kidney injury on chronic kidney disease. Avoid nephrotoxic agents and limit contrast exposure. Continue intravenous normal saline at 75 mL/h. Repeat creatinine in the a.m. 3. Type 2 myocardial infarction secondarily to demand ischemia. Continue general medical management. No acute intervention recommended. 4. Chronic anticoagulation. Continue Eliquis 2.5 mg p.o. b.i.d. 5. Hypothyroidism. Continue levothyroxine 25 mcg p.o. daily. 6. Prophylaxis. SCDs while in bed. Pepcid 20 mg p.o. b.i.d. Respiratory isolation per protocol. 7. Code status is full. Surrogate medical decision maker is the patient's spouse. Job ID: [id number]
[2019-10-20 05:29] LABS: Anion Gap 13 mmol/L (10-20); BUN (Urea Nitrogen) 38 mg/dL (8.4-25.7); Calc. Creatinine Clearance 27 mL/min (70-130); Calcium 9.2 mg/dL (7.8-10.44); Carbon Dioxide 22 mmol/L (23-31); Chloride 112 mmol/L (98-107); Estimated GFR-MDRD 25; Glucose 140 mg/dL (83-110); Potassium 4.7 mmol/L (3.5-5.1); Sodium 142 mmol/L (136-145)
[2019-10-20 05:50] LABS: Band 7 % (5-11); Lymphocytes 23 % (21-51); MDiff Complete? YES; Mean Corpuscular HGB CONC 30.9 g/dL (32.0-36.0); Mean Corpuscular Hemoglobin 30.2 pg (27.0-31.0); Mean Corpuscular Volume 97.7 fL (78.0-98.0); Mean Platelet Volume 8.5 fL (7.4-10.4); Monocytes 9 % (0-10); Neutrophil 61 % (42-75); Platelet Count 129 thou/uL (130-400); Platelet Morphology Comment Appears Adequate; White Blood Cell (WBC) Count 2.7 thou/uL (4.8-10.8)
[2019-10-20] MEDS: Levothyroxine Sodium 25 MCG TAB PO SCH (05:59)
[2019-10-20] MEDS: Sodium Chloride 0.9% 1,000 ML IV SCH ×2 (07:30→21:09)
[2019-10-20] MEDS: Dronedarone HCl 400 MG TAB PO SCH ×2 (09:00→16:24)
[2019-10-20] MEDS: Donepezil HCl 10 MG TAB PO SCH (09:00)
[2019-10-20] MEDS: Dexamethasone 4 MG TAB PO SCH (09:00)
[2019-10-20] MEDS: Finasteride 5 MG TAB PO SCH (09:01)
[2019-10-20] MEDS: Zinc Sulfate 220 MG CAP PO SCH (09:01)
[2019-10-20] MEDS: Ascorbic Acid 500 mg Chewable Tablet PO SCH (09:05)
[2019-10-20] MEDS: Apixaban 2.5 MG TAB PO SCH ×2 (09:05→21:09)
--- NOTE | 2019-10-20 10:45 | PDOC.HOSPP ---
- Subjective Encounter Date: 10/20/19 Encounter Time: 10:45 Subjective: f/u for COVID-19 tx with Zithromax/Dexamethasone/Albuterol. Remains on room air currently. No new events noted per nursing. - Objective Vital Signs & Weight: Vital Signs (12 hours) Temp Pulse Resp BP BP Pulse Ox 10/20/19 07:33 99 10/20/19 07:31 97.9 F 88 21 H 165/87 H 99 10/20/19 04:00 99.1 F 65 20 139/75 99 10/19/19 23:14 97.9 F 88 24 H 138/84 94 L Weight Weight 184 lb 1.6 oz I&O: 10/19/19 10/20/19 10/21/19 06:59 06:59 06:59 Intake Total 900 Output Total 350 Balance 550 Result Diagrams: 10/20/19 04:36 10/20/19 04:36 Additional Labs: Microbiology 10/19/19 11:37 Venous blood - Right Arm Blood Culture - Preliminary Specimen has been received and culture in progress. No Growth to date. 10/19/19 11:37 Venous blood - Left Hand Blood Culture - Preliminary Specimen has been received and culture in progress. No Growth to date. Laboratory Tests 10/19/19 10/19/19 10/19/19 11:02 11:02 15:29 BUN 34 H Creatinine 2.72 H Troponin I 0.213 H 0.292 H 10/19/19 17:35 BUN Creatinine Troponin I 0.305 H* EKG Reviewed by me: Yes (Tele - A-paced) Hospitalist ROS - Medication Medications: Active Medications Generic Name Dose Route Start Last Admin Trade Name Davidq PRN Reason Stop Dose Admin Apixaban 2.5 mg 10/19/19 21:00 10/20/19 09:05 Eliquis PO 2.5 mg BID BEHZAD Administration Ascorbic Acid 1,000 mg 10/20/19 09:00 10/20/19 09:05 Vitamin C PO 1,000 mg DAILY BEHZAD Administration Calcitriol 0.25 mcg 10/19/19 21:00 10/19/19 20:30 Rocaltrol PO 0.25 mcg HS BEHZAD Administration Dexamethasone 6 mg 10/20/19 08:00 10/20/19 09:00 Decadron PO 6 mg QAM-WM BEHZAD Administration Donepezil HCl 10 mg 10/20/19 09:00 10/20/19 09:00 Aricept PO 10 mg DAILY BEHZAD Administration Dronedarone 400 mg 10/20/19 08:00 10/20/19 09:00 Multaq PO 400 mg BID-WM BEHZAD Administration Famotidine 20 mg 10/19/19 21:00 10/19/19 20:30 Pepcid PO 20 mg QPM BEHZAD Administration Finasteride 5 mg 10/20/19 09:00 10/20/19 09:01 Proscar PO 5 mg DAILY BEHZAD Administration Azithromycin 500 mg/ Sodium 250 mls @ 250 mls/hr 10/19/19 18:00 10/19/19 18: 34 Chloride IVPB 250 mls Q24HR BEHZAD Administration Sodium Chloride 1,000 mls @ 75 mls/hr 10/19/19 18:00 10/20/19 07:30 Normal Saline 0.9% IV 1,000 mls .[id number] BEHZAD Administration Levothyroxine Sodium 25 mcg 10/20/19 06:00 10/20/19 05:59 Synthroid PO 25 mcg 0600 BEHZAD Administration Zinc Sulfate 220 mg 10/20/19 09:00 10/20/19 09:01 Zinc Sulfate PO 220 mg DAILY BEHZAD Administration - Exam General Appearance: NAD, awake alert Eye: PERRL, anicteric sclera ENT: normocephalic atraumatic, no oropharyngeal lesions Neck: supple, symmetric, no JVD, no thyromegaly, no lymphadenopathy Heart: RRR, no gallops, no rubs, normal peripheral pulses Heart - other findings: S1, S2 Respiratory: CTAB, no wheezes, no rales, no ronchi, normal chest expansion Gastrointestinal: soft, non-tender, non-distended, normal bowel sounds, no palpable masses Extremities: no cyanosis, no clubbing, no edema Skin: normal turgor, no lesions Neurological: cranial nerve grossly intact, no new deficit Musculoskeletal: normal tone, generalized weakness Psychiatric: oriented to person Hosp A/P (1) COVID-19 virus detected Code(s): U07.1 - COVID-19 Status: Acute Plan: Continue Zithromax/Dexamethasone/Albuterol, resp isolation, Eliquis (2) Type 2 myocardial infarction Code(s): I21.A1 - MYOCARDIAL INFARCTION TYPE 2 Status: Acute Plan: Conservative mgmt, demand-state in context of #1 (3) Acute kidney injury superimposed on CKD Code(s): N17.9 - ACUTE KIDNEY FAILURE, UNSPECIFIED; N18.9 - CHRONIC KIDNEY DISEASE, UNSPECIFIED Status: Acute Plan: Improved, continue low-volume IVF's, avoid nephrotoxic meds (4) Hypertension Code(s): I10 - ESSENTIAL (PRIMARY) HYPERTENSION Status: Chronic Qualifiers: Hypertension type: essential hypertension Qualified Code(s): I10 - Essential (primary) hypertension (5) Dementia Code(s): F03.90 - UNSPECIFIED DEMENTIA WITHOUT BEHAVIORAL DISTURBANCE Status: Chronic Plan: Likely Alzheimer's type, continue supportive mgmt, retirement consideration for memory care unit - Plan continue antibiotics, PT/OT, social staff worker, out of bed/ambulate, DVT proph w/ SCDs Continue supportive mgmt Continue Zithromax/Dexamethasone/Albuterol Continue Eliquis OOB with PT CM for SNF options AM lab: BMP
[2019-10-20] MEDS: Calcitriol 0.25 MCG CAP PO SCH (21:09)
[2019-10-20] MEDS: Famotidine 20 MG TAB PO SCH (21:09)
[2019-10-20] MEDS: Azithromycin 500 MG in Sodium Chloride 0.9% 250 ML 250 ML IVPB SCH (21:31)
[2019-10-21 04:59] LABS: Anion Gap 15 mmol/L (10-20); BUN (Urea Nitrogen) 38 mg/dL (8.4-25.7); Calc. Creatinine Clearance 32 mL/min (70-130); Calcium 8.9 mg/dL (7.8-10.44); Carbon Dioxide 20 mmol/L (23-31); Chloride 110 mmol/L (98-107); Estimated GFR-MDRD 31; Glucose 94 mg/dL (83-110); Potassium 4.5 mmol/L (3.5-5.1); Sodium 140 mmol/L (136-145)
[2019-10-21] MEDS: Levothyroxine Sodium 25 MCG TAB PO SCH (06:37)
[2019-10-21] MEDS ORDERED: Cepastat Lozenges 1 LOZ PO PRN (07:29)
[2019-10-21] MEDS ORDERED: Temazepam 15 MG CAP PO PRN (07:29)
[2019-10-21] MEDS ORDERED: Loratadine 10 MG TAB PO PRN (07:29)
[2019-10-21] MEDS ORDERED: Senokot S 8.6-50 MG TAB PO PRN (07:29)
[2019-10-21] MEDS ORDERED: Sodium Chloride 0.65% Nasal 44 ML BOT EA NARE PRN (07:29)
[2019-10-21] MEDS ORDERED: Calcium Carbonate 500 MG ChewTAB PO PRN (07:29)
[2019-10-21] MEDS: Dronedarone HCl 400 MG TAB PO SCH ×2 (09:25→17:18)
[2019-10-21] MEDS: Zinc Sulfate 220 MG CAP PO SCH ×2 (09:25→11:22)
[2019-10-21] MEDS: Dexamethasone 4 MG TAB PO SCH (09:25)
[2019-10-21] MEDS: Apixaban 2.5 MG TAB PO SCH ×2 (09:26→21:02)
[2019-10-21] MEDS: Ascorbic Acid 500 mg Chewable Tablet PO SCH (09:26)
[2019-10-21] MEDS: Finasteride 5 MG TAB PO SCH (09:26)
[2019-10-21] MEDS: Donepezil HCl 10 MG TAB PO SCH (09:26)
--- NOTE | 2019-10-21 10:48 | PDOC.HOSPP ---
- Subjective Encounter Date: 10/21/19 Encounter Time: 07:00 Subjective: Patient seen and examined bedside today, this morning patient was having atrial fibrillation with rapid ventricular response though patient was asymptomatic and after giving his own home medication his heart rate is converted to controlled rate, - Objective Vital Signs & Weight: Vital Signs (12 hours) Pulse Resp BP Pulse Ox 10/21/19 04:00 67 18 167/98 H 100 Weight Weight 184 lb 1.6 oz I&O: 10/20/19 10/21/19 10/22/19 06:59 06:59 06:59 Intake Total 900 Output Total 350 Balance 550 Result Diagrams: 10/20/19 04:36 10/21/19 04:12 Radiology Reviewed by me: Yes EKG Reviewed by me: Yes (Atrial fibrillation with rapid ventricular response) Hospitalist ROS - Review of Systems Constitutional: denies: fever, chills, sweats, weakness, malaise, other ENT: denies: ear pain, ear discharge, nose pain, nose discharge, nose congestion , mouth pain, mouth swelling, throat pain, throat swelling, other Respiratory: denies: cough, dry, shortness of breath, hemoptysis, SOB with excertion, pleuritic pain, sputum, wheezing, other Cardiovascular: denies: chest pain, palpitations, orthopnea, paroxysmal noc. dyspnea, edema, light headedness, other Gastrointestinal: denies: nausea, vomiting, abdominal pain, diarrhea, constipation, melena, hematochezia, other Genitourinary: denies: dysuria, frequency, incontinence, hematuria, retention, other Musculoskeletal: denies: neck pain, shoulder pain, arm pain, back pain, hand pain, leg pain, foot pain, other - Medication Medications: Active Medications Generic Name Dose Route Start Last Admin Trade Name Freq PRN Reason Stop Dose Admin Apixaban 2.5 mg 10/19/19 21:00 10/21/19 09:26 Eliquis PO 2.5 mg BID BEHZAD Administration Ascorbic Acid 1,000 mg 10/20/19 09:00 10/21/19 09:26 Vitamin C PO 1,000 mg DAILY BEHZAD Administration Calcitriol 0.25 mcg 10/19/19 21:00 10/20/19 21:09 Rocaltrol PO 0.25 mcg HS BEHZAD Administration Dexamethasone 6 mg 10/20/19 08:00 10/21/19 09:25 Decadron PO 6 mg QAM-WM BEHZAD Administration Donepezil HCl 10 mg 10/20/19 09:00 10/21/19 09:26 Aricept PO 10 mg DAILY BEHZAD Administration Dronedarone 400 mg 10/20/19 08:00 10/21/19 09:25 Multaq PO 400 mg BID-WM BEHZAD Administration Famotidine 20 mg 10/19/19 21:00 10/20/19 21:09 Pepcid PO 20 mg QPM BEHZAD Administration Finasteride 5 mg 10/20/19 09:00 10/21/19 09:26 Proscar PO 5 mg DAILY BEHZAD Administration Azithromycin 500 mg/ Sodium 250 mls @ 250 mls/hr 10/20/19 21:00 10/20/19 21: 31 Chloride IVPB 250 mls 2100 BEHZAD Administration Levothyroxine Sodium 25 mcg 10/20/19 06:00 10/21/19 06:37 Synthroid PO 25 mcg 0600 BEHZAD Administration Zinc Sulfate 220 mg 10/20/19 09:00 10/21/19 09:25 Zinc Sulfate PO 220 mg DAILY BEHZAD Administration - Exam General Appearance: NAD, awake alert Eye: PERRL, anicteric sclera ENT: normocephalic atraumatic, no oropharyngeal lesions Neck: supple, symmetric, no JVD, no thyromegaly Heart: no murmur, no gallops, irregular Respiratory: no wheezes, no rales Gastrointestinal: soft, non-tender, non-distended, normal bowel sounds Extremities: no cyanosis, no clubbing Skin: normal turgor, no lesions Neurological: no focal deficits Musculoskeletal: normal tone, normal strength Psychiatric: normal affect, normal behavior Hosp A/P (1) Atrial fibrillation with RVR Code(s): I48.91 - UNSPECIFIED ATRIAL FIBRILLATION Status: Acute (2) Type 2 myocardial infarction Code(s): I21.A1 - MYOCARDIAL INFARCTION TYPE 2 Status: Acute (3) Acute kidney injury superimposed on CKD Code(s): N17.9 - ACUTE KIDNEY FAILURE, UNSPECIFIED; N18.9 - CHRONIC KIDNEY DISEASE, UNSPECIFIED Status: Acute (4) COVID-19 virus detected Code(s): U07.1 - COVID-19 Status: Acute (5) Dementia Code(s): F03.90 - UNSPECIFIED DEMENTIA WITHOUT BEHAVIORAL DISTURBANCE Status: Chronic (6) BPH (benign prostatic hyperplasia) Code(s): N40.0 - BENIGN PROSTATIC HYPERPLASIA WITHOUT LOWER URINRY TRACT SYMP Status: Chronic (7) CKD (chronic kidney disease) stage 3, GFR 30-59 ml/min Code(s): N18.3 - CHRONIC KIDNEY DISEASE, STAGE 3 (MODERATE) Status: Chronic (8) Diabetes type 2, controlled Code(s): E11.9 - TYPE 2 DIABETES MELLITUS WITHOUT COMPLICATIONS Status: Chronic (9) Hyperlipidemia Code(s): E78.5 - HYPERLIPIDEMIA, UNSPECIFIED Status: Chronic (10) Hypertension Code(s): I10 - ESSENTIAL (PRIMARY) HYPERTENSION Status: Chronic Qualifiers: Hypertension type: essential hypertension Qualified Code(s): I10 - Essential (primary) hypertension - Plan old records reviewed/req, PT/OT, social services technician Patient has paroxysmal atrial fibrillation with rapid ventricular response, patient has significantly elevated troponin, though patient is asymptomatic but will get opinion from cardiology, will continue multaq, patient renal function has been stabilized baseline level and thus I will discontinue IV fluid chamber of [employer] division manager is working on his placement, whenever we have placement arranged and if cardiology clears him then possible discharge today or tomorrow based on his clinical course, Discharge paperwork has been done, discharge medication has been reconciled
[2019-10-21] MEDS ORDERED: Metoprolol Tartrate 5 MG/5 ML VIAL IVP SCH (15:45)
--- NOTE | 2019-10-21 18:45 | CON ---
DATE OF CONSULTATION: HISTORY OF PRESENT ILLNESS: The patient is an 84-year-old gentleman, who developed a rapid irregular heart rhythm. The patient has a history of syncope, has had placement of an electronic pacemaker in 2018. The patient also has a history of an abdominal aortic aneurysm. The patient has an apparent history of paroxysmal atrial fibrillation, he is on chronic anticoagulation and Multaq. The patient was admitted with COVID. He developed a rapid irregular heart rhythm. The patient is unable to give any coherent history. PAST MEDICAL HISTORY: Significant for; 1. Atrial fibrillation. 2. Hypertension. 3. Diabetes mellitus. 4. Dyslipidemia. 5. Abdominal aneurysm. 6. BPH. 7. Dementia. PAST SURGICAL HISTORY: He has had endovascular repair of an aortic aneurysm. He has had tonsillectomy, prostate biopsy, cataract surgery, lipoma resection. ALLERGIES: HE IS ALLERGIC TO PENICILLIN AND LOPERAMIDE. SOCIAL HISTORY: He lives in [facility]. REVIEW OF SYSTEMS: Not obtainable. PHYSICAL EXAMINATION: VITAL SIGNS: Blood pressure 132/76, heart rate was 89. Physical examination was deferred due to COVID positive. LABORATORY RESULTS: White blood cell count 2.7, hemoglobin 13.0, hematocrit 42.0, platelets 129. Sodium is 140, potassium 4.5, chloride 110, bicarbonate 20, BUN 38, creatinine 2.0. Troponin 0.3. His EKG revealed electronic atrial pacemaker with a right bundle-branch block. Telemetry monitoring revealed rapid atrial fibrillation. IMPRESSION: 1. Paroxysmal atrial fibrillation. 2. COVID positive. 3. History of Alzheimer dementia. 4. Diabetes mellitus. 5. Abdominal aneurysm repair. 6. Renal insufficiency. This gentleman presents COVID positive and has developed rapid atrial fibrillation. From a cardiac standpoint, we will try to give him IV Lopressor to low his heart rate. We will add Toprol. If he remains in atrial fibrillation, we will consider switching from Multaq to amiodarone. I will follow this patient with you through his hospitalization. Job ID: [id number]
[2019-10-21] MEDS: Calcitriol 0.25 MCG CAP PO SCH (21:02)
[2019-10-21] MEDS: Azithromycin 500 MG in Sodium Chloride 0.9% 250 ML 250 ML IVPB SCH (21:06)
[2019-10-21] MEDS: Famotidine 20 MG TAB PO SCH (21:06)
[2019-10-22] MEDS: Levothyroxine Sodium 25 MCG TAB PO SCH (04:18)
[2019-10-22] MEDS: Donepezil HCl 10 MG TAB PO SCH ×2 (09:01→10:31)
[2019-10-22] MEDS: Dronedarone HCl 400 MG TAB PO SCH ×2 (09:01→15:50)
[2019-10-22] MEDS: Ascorbic Acid 500 mg Chewable Tablet PO SCH ×2 (09:01→10:31)
[2019-10-22] MEDS: Finasteride 5 MG TAB PO SCH ×2 (09:01→10:31)
[2019-10-22] MEDS: Zinc Sulfate 220 MG CAP PO SCH ×2 (09:01→10:32)
[2019-10-22] MEDS: Dexamethasone 4 MG TAB PO SCH (09:02)
[2019-10-22] MEDS: Apixaban 2.5 MG TAB PO SCH ×2 (09:02→20:49)
[2019-10-22] MEDS ORDERED: Sodium Chloride 0.9% 1,000 ML IV SCH (16:30)
[2019-10-22] MEDS: Calcitriol 0.25 MCG CAP PO SCH (20:49)
[2019-10-22] MEDS: Famotidine 20 MG TAB PO SCH (20:49)
[2019-10-23] MEDS: Levothyroxine Sodium 25 MCG TAB PO SCH (06:02)
[2019-10-23 07:52] VITALS: BP 144/83; TEMP 99.8
[2019-10-23] MEDS: Ascorbic Acid 500 mg Chewable Tablet PO SCH (07:59)
[2019-10-23] MEDS: Dexamethasone 4 MG TAB PO SCH (08:00)
[2019-10-23] MEDS: Finasteride 5 MG TAB PO SCH (08:00)
[2019-10-23] MEDS: Zinc Sulfate 220 MG CAP PO SCH (08:00)
[2019-10-23] MEDS: Dronedarone HCl 400 MG TAB PO SCH (08:01)
[2019-10-23] MEDS: Donepezil HCl 10 MG TAB PO SCH (08:02)
[2019-10-23] MEDS: Apixaban 2.5 MG TAB PO SCH (08:06)
--- NOTE | 2019-10-24 20:15 | DIS ---
DATE OF ADMISSION: 10/19/2019 DATE OF DISCHARGE: 10/23/2019 DISCHARGE DIAGNOSES: 1. COVID-19 infection. 2. Acute hypoxic respiratory failure. 3. Acute on chronic kidney injury. 4. Type 2 myocardial infarction secondary to demand ischemia. 5. Atrial fibrillation with RVR. 6. Hypothyroidism. 7. Alzheimer dementia. 8. Diabetes mellitus. HOSPITAL COURSE: The patient is an 84-year-old male, with a history of Alzheimer dementia, who presented via the emergency department. The patient was known COVID positive and had developed more shortness of breath and cough. He was found to be mildly hypoxic with an O2 saturation in the 90% range. The patient was admitted to the hospital, started on supplemental oxygen with dexamethasone, dose of Zithromax, and albuterol inhaler, vitamin C and zinc. The patient had some mild worsening of his chronic kidney disease and his troponins were minimally elevated at 0.213 to 0.292. The patient was admitted to the hospital with those medications above. He subsequently had some initial improvement and developed atrial fibrillation with RVR. He was treated with beta blockers and had rate control with that. He had consultation by Cardiology. He was maintained on his other home medications including the Eliquis 2.5 mg b.i.d. The patient had difficult time subjectively reporting his progress due to his dementia, but clinically appeared to be improving with tolerable room-air saturations. Therefore, he was felt to be stable for discharge back to his facility. The patient was initially discharged on 10/22/2019. At that time, room air saturations were 95% to 99% on room air, BP was 159/98. He was awake and alert. He was somewhat resistant to detailed physical exam. However, the patient's facility would not take him after a certain time in the afternoon and we were unable to get transportation arranged prior to that. Therefore, he held over until the . At which time, he continued to have O2 saturations in the 94% range on room air, T-max was 99.8, BP was 144/83. The exam was essentially unchanged. DISPOSITION: The patient is discharged back to [facility]. ACTIVITY: As tolerated. He will be on a diabetic diet. He will have OT and PT. MEDICATIONS: Include; 1. Albuterol one puff q.4 hours p.r.n. 2. Vitamin C 1000 mg daily. 3. Tessalon p.r.n. 4. Decadron 6 mg daily. 5. Pepcid 20 mg at bedtime. 6. Zinc 220 mg daily. 7. Metoprolol 25 mg daily. 8. Rocaltrol 0.25 mcg at bedtime. 9. Levothyroxine 25 mcg daily. 10. Eliquis 2.5 mg b.i.d. 11. Finasteride 5 mg daily. 12. Donepezil 10 mg daily. 13. Multaq 400 mg b.i.d. with meals. The patient is to follow up with Dr. Katie Hewitt and with Cardiology. He can return to the hospital at anytime he has the need to do so. Total time in discharge activities was greater than 30 minutes. Job ID: [id number]
== END 2019-10-23 10:53 | DRG 177 ==
LOC: ERS 09:23 → 2SW 14:41
PROVIDERS: ADMIT Family Medicine; ATTEND Family Medicine
PROC: 8E0ZXY6 Isolation (ICD-10-PCS; principal; 2019-10-19)
DX: U07.1 COVID-19 (principal); I21.A1 Myocardial infarction type 2; J96.01 Acute respiratory failure with hypoxia; N17.9 Acute kidney failure, unspecified; G30.9 Alzheimer's disease, unspecified; F02.80 Dementia in other diseases classified elsewhere, unspecified severity, without behavioral disturbance, psychotic disturbance, mood disturbance, and anxiety; E78.5 Hyperlipidemia, unspecified; E03.9 Hypothyroidism, unspecified; J44.9 Chronic obstructive pulmonary disease, unspecified; I12.9 Hypertensive chronic kidney disease with stage 1 through stage 4 chronic kidney disease, or unspecified chronic kidney disease; N40.0 Benign prostatic hyperplasia without lower urinary tract symptoms; N18.3 Chronic kidney disease, stage 3 (moderate); I48.0 Paroxysmal atrial fibrillation; Z79.01 Long term (current) use of anticoagulants; Z95.0 Presence of cardiac pacemaker; Z90.89 Acquired absence of other organs; Z98.42 Cataract extraction status, left eye; Z98.41 Cataract extraction status, right eye; Z88.0 Allergy status to penicillin; Z88.8 Allergy status to other drugs, medicaments and biological substances; Z87.891 Personal history of nicotine dependence; Z86.73 Personal history of transient ischemic attack (TIA), and cerebral infarction without residual deficits
CPT/HCPCS: 36415; 71045; 80048; 80053; 82553; 83605; 84484; 85025; 87040; 93005; 96361; 96365; 96375; J0456; J0696; J1100; J7050; J8540